=== PATIENT | male | born 1975 | race Caucasian/White ===

== ENCOUNTER 2017-12-29 20:47 | Emergency (ER) | payer BC ==
[2017-12-29 21:00] VITALS: BP 113/80
--- NOTE | 2017-12-29 21:14 | EDM.PDOC ---
ED HPI GENERAL MEDICAL PROBLEM - General Chief Complaint: Abdominal Pain Stated Complaint: FEVER/PAIN IN STOMACH Time Seen by Provider: 12/29/17 21:04 Source of Information: Reports: Patient History Limitations: Reports: No Limitations - History of Present Illness INITIAL COMMENTS - FREE TEXT/NARRATIVE: 42-year-old male presents to the ED with development of fever and some chills this afternoon. He also has pleuritic right-sided chest pain which makes it difficult for take a full deep breath along the right costal margin and right upper quadrant of the abdomen. Was diagnosed that he took 2 Percocets about 1: 00 today. About 4:00 he started to develop fever with some chills. He has a fever upon examination in the ED. He did eat much for supper. Last use of his Port-A-Cath was last in the [facility] where he received IV fluids. He has no genitourinary complaints no diarrhea in fact he has prongs with constipation. Denies cough or sputum production. No sore throat no oral ulcers. Patient finished his second course of chemotherapy last week. He is scheduled for third course of chemotherapy next week. His current oncologist is Dr. Kenyon At [facility] in [place]. Vital signs are normal. He states his O2 sats are usually 95% which they are today. Onset: Today Onset Date: 12/29/17 Onset Time: 15:30 Duration: Hour(s): Location: Reports: Chest (Lower right lung finley pleuritic type pain with deep inspiration.), Abdomen (RUQ of the abdoemn. ) Quality: Reports: Ache, Sharp (Pleuritic) Severity: Moderate (Current rates pain as a 45 out of 10.) Improves with: Reports: Rest Worsens with: Reports: Other Context: Denies: Activity (Deep breathing.), Exercise, Lifting, Sick Contact, Trauma, Other Associated Symptoms: Reports: Shortness of Breath, Other (Chronically his left lung is known to have multiple metastatic nodules.). Denies: No Other Symptoms , Confusion, Chest Pain, Cough, cough w sputum, Diaphoresis, Fever/Chills, Headaches, Loss of Appetite Treatments FIBERGLASSER: Reports: Other (see below) (He is taken Percocet earlier today probably about 1:00 with some relief of the pain and fever relief.) Right Upper Abdominal Pain Score (Numeric/FACES): 9 - Related Data Allergies Allergy/AdvReac Type Severity Reaction Status Date / Time ciprofloxacin HCl Allergy Facial Verified 12/29/17 20:54 [From Cipro] Swelling levofloxacin [From Levaquin] Allergy Rash Verified 12/29/17 20:54 Home Meds: Home Meds Amoxicillin/Clavulanate K [Augmentin 875 MG] 1 tab PO BID #20 tablet 02/13/15 [ Rx] Cefdinir [Omnicef] 300 mg PO BID #14 cap 12/29/17 [Rx] Past Medical History Other Genitourinary History: prostitis Oncologic (Cancer) History: Reports: Other (See Below) (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 Diagnosis was made the end of September of this year confirmed by PET scan to be fairly static. Charlie is currently completed 2 courses of chemotherapy and is scheduled to start third course next week. This includes high-dose steroids orally for week. He has had previous development of pericardial effusion that required drainage but no cancer cells were identified. Known to have metastatic disease I believe to both lungs.) - Past Surgical History Other Male Surgeries/Procedures: Vasectomy 5 weeks ago Social & Family History - Tobacco Use Smoking Status *Q: Unknown Ever Smoked Second Hand Smoke Exposure: No - Alcohol Use Days Per Week of Alcohol Use: 2 Number of Drinks Per Day: 2 Total Drinks Per Week: 4 - Recreational Drug Use Recreational Drug Use: No - Living Situation & Occupation Living situation: Reports: Occupation: Disabled ED ROS GENERAL - Review of Systems Review Of Systems: See Below (At present due to cancer.) Constitutional: Reports: Fever, Chills, Malaise, Weakness (Wray this afternoon), Fatigue, Night Sweats (Kidney much today. Will gets occasional night sweats), Decreased Appetite, Weight Loss HEENT: Reports: No Symptoms Respiratory: Reports: Shortness of Breath, Pleuritic Chest Pain (Chest pain right costal margin). Denies: Wheezing (On exertion), Cough ( today.), Sputum, Hemoptysis, Other Cardiovascular: Reports: No Symptoms, Chest Pain (Right lower quadrant of the chest. Pleuritic and worsens with deep inspiration), Dyspnea on Exertion (Can take a full deep breath as it aggravates the pain). Denies: Blood Pressure Problem, Claudication, Edema, Orthopnea, Other Endocrine: Reports: Fatigue GI/Abdominal: Reports: Abdominal Pain (Right upper quadrant discomfort associated with the pleuritic pain in the right lower lung field.), Constipation (Issues with constipation.) : Reports: No Symptoms, Frequency Musculoskeletal: Reports: Back Pain Skin: Reports: No Symptoms (At the bottom of his right lung on again at costal margin has some pain) Neurological: Reports: No Symptoms Psychiatric: Reports: No Symptoms Hematologic/Lymphatic: Reports: No Symptoms Immunologic: Reports: No Symptoms ED EXAM, GI/ABD - Physical Exam Exam: See Below Exam Limited By: No Limitations General Appearance: Alert, WD/WN, No Apparent Distress, Other (His abdomen does feel quite warm to palpation.) Eyes: Bilateral: Normal Appearance (No jaundice.), Pale Conjunctiva (Mild conjunctival pallor.) Ears: Normal TMs Nose: Normal Inspection, Normal Mucosa, No Blood Throat/Mouth: Normal Inspection, Normal Lips, Normal Teeth, Normal Oropharynx, Other Head: Atraumatic, Normocephalic Neck: Normal Inspection, Supple, Non-Tender, Full Range of Motion. No: Lymphadenopathy (L), Lymphadenopathy (R) Respiratory/Chest: Respiratory Distress, Decreased Breath Sounds (Decreased breath sounds to the lower 50% of the left lung. There is dullness to percussion as well.), Other (Port-A-Cath his right upper anterior chest. Surgical scar left upper anterior chest healing well). No: Normal Breath Sounds (Mild tachypnea), Rales, Rhonchi, Wheezing, Pleural Rub Cardiovascular: Normal Peripheral Pulses, Regular Rate, Rhythm, No Edema, No Gallop (Sinus tachycardia at 1 13/m at rest.), No JVD, No Murmur, No Rub, Tachycardia, Other (Sounds are mildly muffled.) GI/Abdominal Exam: Normal Bowel Sounds, Soft, Non-Tender, No Organomegaly, No Distention, No Abnormal Bruit, No Mass, Pelvis Stable Back Exam: Normal Inspection, Full Range of Motion. No: CVA Tenderness (L), CVA Tenderness (R) Extremities: Normal Inspection, Normal Range of Motion, No Pedal Edema, Normal Capillary Refill, Other Neurological: Alert, Oriented, CN II-XII Intact, Normal Cognition Psychiatric: Normal Affect, Normal Mood Skin Exam: Warm, Dry, Intact, Normal Color, No Rash EKG INTERPRETATION EKG Date: 12/29/17 Time: 21:25 Rhythm: Other Rate (Beats/Min): 113 [place]: LAD-Left [place]un[place] Deviation (Left axis deviation -16) P-Wave: Present QRS: Other (Early R-wave transition consider right ventricular hypertrophy. Decreased voltage limb leads.) ST-T: Depressed (Mild ST segment depression in V6 only.) QT: Prolonged (QT minimally prolonged) EKG Interpretation Comments: Abnormal ECG Course - Vital Signs Last Recorded V/S: Last Vital Signs Temp 36.9 C 12/29/17 20:55 Pulse 129 H 12/29/17 20:55 Resp BP 113/80 12/29/17 20:55 Pulse Ox 95 12/29/17 20:55 - Orders/Labs/Meds Orders: Active Orders 24 hr Category Date Time Status EKG Documentation Completion [RC] STAT Care 12/29/17 21:18 Active Abdomen 1V Flat [CR] Stat Exams 12/29/17 21:18 Taken Chest 1V Frontal [CR] Stat Exams 12/29/17 21:18 Taken CULTURE BLOOD [BC] Stat Lab 12/29/17 21:35 Received CULTURE BLOOD [BC] Stat Lab 12/29/17 21:46 Received Dextrose 5%-0.9% NaCl [Dextrose 5%-Normal Saline] 1,000 Med 12/29/17 21:45 Active ml IV ASDIRECTED Ketorolac [Toradol] Med 12/29/17 21:45 Active 30 mg IVPUSH ONETIME cefTRIAXone [Rocephin] 2 gm Med 12/29/17 23:00 Active Sodium Chloride 0.9% [Normal Saline] 100 ml IV Q24H Blood Culture x2 Reflex Set [OM.PC] Stat Oth 12/29/17 21:20 Ordered Medication Orders Dextrose/Sodium Chloride (Dextrose 5%-Normal Saline) 1,000 mls @ 150 mls/hr IV ASDIRECTED DANIEL Last Admin: 12/29/17 22:11 Dose: 150 mls/hr Ceftriaxone Sodium 2 gm/ (Sodium Chloride) 100 mls @ 100 mls/hr IV Q24H DANIEL Last Admin: 12/29/17 23:06 Dose: 100 mls/hr Ketorolac Tromethamine (Toradol) 30 mg IVPUSH ONETIME [facility] Last Admin: 12/29/17 22:14 Dose: 30 mg Labs: Laboratory Tests 12/29/17 12/29/17 12/29/17 Range/Units 21:46 21:46 21:46 WBC 4.98 (4.23-9.07) K/mm3 RBC 4.03 L (4.63-6.08) M/mm3 Hgb 10.6 L (13.7-17.5) gm/L Hct 32.5 L (40.1-51.0) % MCV 80.6 (79.0-92.2) fl MCH 26.3 (25.7-32.2) pg MCHC 32.6 (32.2-35.5) g/dl RDW Std Deviation 53.1 H (35.1-43.9) fL Plt Count 322 (163-337) K/mm3 MPV 8.4 L (9.4-12.3) fl Neutrophils % (Manual) 63 H (40-60) % Band Neutrophils % 0 (0-10) % Lymphocytes % (Manual) 25 (20-40) % Atypical Lymphs % 0 % Monocytes % (Manual) 11 H (2-10) % Eosinophils % (Manual) 0 L (0.8-7.0) % Basophils % (Manual) 1 (0.2-1.2) Platelet Estimate Adequate Plt Morphology Comment Normal Hypochromasia 1+ slight Anisocytosis 2+ moderate Microcytosis 1+ slight RBC Morph Comment Not Reportable ESR (0-15) mm/hr PT 9.9 (8.0-13.0) SECONDS INR 0.93 D-Dimer, Quantitative (0.19-0.59) mg/L Sodium 137 (136-145) mEq/L Potassium 4.0 (3.5-5.1) mEq/L Chloride 100 (98-107) mEq/L Carbon Dioxide 27 (21-32) mEq/L Anion Gap 14.0 (5-15) BUN 9 (7-18) mg/dL Creatinine 0.9 (0.7-1.3) mg/dL Est Cr Clr Drug Dosing 97.47 mL/min Estimated GFR (MDRD) > 60 (>60) mL/min BUN/Creatinine Ratio 10.0 L (14-18) Glucose 112 H (74-106) mg/dL Lactic Acid (0.4-2.0) mmol/L Calcium 9.1 (8.5-10.1) mg/dL Magnesium 1.8 (1.8-2.4) mg/dl Total Bilirubin 0.5 (0.2-1.0) mg/dL AST 16 (15-37) U/L ALT 26 (16-63) U/L Alkaline Phosphatase 80 (46-116) U/L Lactate Dehydrogenase 250 H (85-227) U/L Creatine Kinase 26 L (39-308) U/L C-Reactive Protein 11.9 H* (<1.0) mg/dL NT-Pro-B Natriuret Pep (0-125) pg/mL Total Protein 7.1 (6.4-8.2) g/dl Albumin 3.4 (3.4-5.0) g/dl Globulin 3.7 gm/dL Albumin/Globulin Ratio 0.9 L (1-2) Urine Color (Yellow) Urine Appearance (Clear) Urine pH (5.0-8.0) Ur Specific Mulberry (1.005-1.030) Urine Protein (Negative) Urine Glucose (UA) (Negative) Urine Ketones (Negative) Urine Occult Blood (Negative) Urine Nitrite (Negative) Urine Bilirubin (Negative) Urine Urobilinogen (0.2-1.0) Ur Leukocyte Esterase (Negative) Urine RBC (0-5) /hpf Urine WBC (0-5) /hpf Ur Epithelial Cells (0-5) /hpf Ur Squamous Epith Cells (0-5) /hpf Urine Bacteria (FEW) /hpf Urine Mucus (FEW) /hpf 12/29/17 12/29/17 12/29/17 Range/Units 21:46 21:46 21:46 WBC (4.23-9.07) K/mm3 RBC (4.63-6.08) M/mm3 Hgb (13.7-17.5) gm/L Hct (40.1-51.0) % MCV (79.0-92.2) fl MCH (25.7-32.2) pg MCHC (32.2-35.5) g/dl RDW Std Deviation (35.1-43.9) fL Plt Count (163-337) K/mm3 MPV (9.4-12.3) fl Neutrophils % (Manual) (40-60) % Band Neutrophils % (0-10) % Lymphocytes % (Manual) (20-40) % Atypical Lymphs % % Monocytes % (Manual) (2-10) % Eosinophils % (Manual) (0.8-7.0) % Basophils % (Manual) (0.2-1.2) Platelet Estimate Plt Morphology Comment Hypochromasia Anisocytosis Microcytosis RBC Morph Comment ESR 78 H (0-15) mm/hr PT (8.0-13.0) SECONDS INR D-Dimer, Quantitative 1.80 H (0.19-0.59) mg/L Sodium (136-145) mEq/L Potassium (3.5-5.1) mEq/L Chloride (98-107) mEq/L Carbon Dioxide (21-32) mEq/L Anion Gap (5-15) BUN (7-18) mg/dL Creatinine (0.7-1.3) mg/dL Est Cr Clr Drug Dosing mL/min Estimated GFR (MDRD) (>60) mL/min BUN/Creatinine Ratio (14-18) Glucose (74-106) mg/dL Lactic Acid 0.7 (0.4-2.0) mmol/L Calcium (8.5-10.1) mg/dL Magnesium (1.8-2.4) mg/dl Total Bilirubin (0.2-1.0) mg/dL AST (15-37) U/L ALT (16-63) U/L Alkaline Phosphatase (46-116) U/L Lactate Dehydrogenase (85-227) U/L Creatine Kinase (39-308) U/L C-Reactive Protein (<1.0) mg/dL NT-Pro-B Natriuret Pep (0-125) pg/mL Total Protein (6.4-8.2) g/dl Albumin (3.4-5.0) g/dl Globulin gm/dL Albumin/Globulin Ratio (1-2) Urine Color (Yellow) Urine Appearance (Clear) Urine pH (5.0-8.0) Ur Specific Mulberry (1.005-1.030) Urine Protein (Negative) Urine Glucose (UA) (Negative) Urine Ketones (Negative) Urine Occult Blood (Negative) Urine Nitrite (Negative) Urine Bilirubin (Negative) Urine Urobilinogen (0.2-1.0) Ur Leukocyte Esterase (Negative) Urine RBC (0-5) /hpf Urine WBC (0-5) /hpf Ur Epithelial Cells (0-5) /hpf Ur Squamous Epith Cells (0-5) /hpf Urine Bacteria (FEW) /hpf Urine Mucus (FEW) /hpf 12/29/17 12/29/17 Range/Units 21:46 22:19 WBC (4.23-9.07) K/mm3 RBC (4.63-6.08) M/mm3 Hgb (13.7-17.5) gm/L Hct (40.1-51.0) % MCV (79.0-92.2) fl MCH (25.7-32.2) pg MCHC (32.2-35.5) g/dl RDW Std Deviation (35.1-43.9) fL Plt Count (163-337) K/mm3 MPV (9.4-12.3) fl Neutrophils % (Manual) (40-60) % Band Neutrophils % (0-10) % Lymphocytes % (Manual) (20-40) % Atypical Lymphs % % Monocytes % (Manual) (2-10) % Eosinophils % (Manual) (0.8-7.0) % Basophils % (Manual) (0.2-1.2) Platelet Estimate Plt Morphology Comment Hypochromasia Anisocytosis Microcytosis RBC Morph Comment ESR (0-15) mm/hr PT (8.0-13.0) SECONDS INR D-Dimer, Quantitative (0.19-0.59) mg/L Sodium (136-145) mEq/L Potassium (3.5-5.1) mEq/L Chloride (98-107) mEq/L Carbon Dioxide (21-32) mEq/L Anion Gap (5-15) BUN (7-18) mg/dL Creatinine (0.7-1.3) mg/dL Est Cr Clr Drug Dosing mL/min Estimated GFR (MDRD) (>60) mL/min BUN/Creatinine Ratio (14-18) Glucose (74-106) mg/dL Lactic Acid (0.4-2.0) mmol/L Calcium (8.5-10.1) mg/dL Magnesium (1.8-2.4) mg/dl Total Bilirubin (0.2-1.0) mg/dL AST (15-37) U/L ALT (16-63) U/L Alkaline Phosphatase (46-116) U/L Lactate Dehydrogenase (85-227) U/L Creatine Kinase (39-308) U/L C-Reactive Protein (<1.0) mg/dL NT-Pro-B Natriuret Pep 26 (0-125) pg/mL Total Protein (6.4-8.2) g/dl Albumin (3.4-5.0) g/dl Globulin gm/dL Albumin/Globulin Ratio (1-2) Urine Color Yellow (Yellow) Urine Appearance Clear (Clear) Urine pH 6.5 (5.0-8.0) Ur Specific [place] 1.015 (1.005-1.030) Urine Protein Negative (Negative) Urine Glucose (UA) Negative (Negative) Urine Ketones Negative (Negative) Urine Occult Blood Negative (Negative) Urine Nitrite Negative (Negative) Urine Bilirubin Negative (Negative) Urine Urobilinogen 0.2 (0.2-1.0) Ur Leukocyte Esterase Negative (Negative) Urine RBC Not seen (0-5) /hpf Urine WBC 0-5 (0-5) /hpf Ur Epithelial Cells 0-5 (0-5) /hpf Ur Squamous Epith Cells 0-5 (0-5) /hpf Urine Bacteria Not seen (FEW) /hpf Urine Mucus Not seen (FEW) /hpf Meds: Medications Generic Name Dose Route Start Last Admin Trade Name Freq PRN Reason Stop Dose Admin Dextrose/Sodium Chloride 1,000 mls @ 150 mls/hr 12/29/17 21:45 12/29/17 22:11 Dextrose 5%-Normal Saline IV 150 mls/hr ASDIRECTED DANIEL Administration Ceftriaxone Sodium 2 gm/ 100 mls @ 100 mls/hr 12/29/17 23:00 12/29/17 23:06 Sodium Chloride IV 100 mls/hr Q24H DANIEL Administration Ketorolac Tromethamine 30 mg 12/29/17 21:45 12/29/17 22:14 Toradol IVPUSH 30 mg ONETIME DANIEL Administration Discontinued Medications Generic Name Dose Route Start Last Admin Trade Name Freq PRN Reason Stop Dose Admin Acetaminophen 975 mg 12/29/17 21:33 12/29/17 22:15 Tylenol PO 12/29/17 21:34 975 mg NOW ONE Administration Heparin Sodium (Porcine) 500 units 12/29/17 23:45 Heparin Lock Flush 100 Units/Ml FLUSH 12/29/17 23:46 ASDIRECTED ONE Magnesium Citrate 180 ml 12/29/17 23:37 Citrate Of Magnesia PO 12/29/17 23:38 ONETIME ONE - Radiology Interpretation Free Text/Narrative:: 42-year-old male presents to the ED for evaluation of acute onset of fever and chills this afternoon. He had some mild pleuritic chest pain last night along the right costal margin that is worsened as the day has gone on. No associated cough or sputum production. He feels pain in his right upper quadrant of his abdomen is well. States she's had some issues with constipation as of late. Appetite was poor and he did not eat much for supper tonight. He is febrile on my initial assessment. 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 He is just completed his second course of chemotherapy last week. He is due to start third course next week. He has taken 2 Percocets earlier this afternoon for fever and pain relief. Her pain is 4 out of 10 with a strong pleuritic component. Plan septic workup. Will access his Port-A-Cath for one blood culture and a peripheral blood culture will be obtained. One view chest x- ray one view abdomen to be done. He has really decreased air into the left lung field with suspect pleural effusion on the left side. May require CT scan of his chest. Pain he just had one last however at [facility]. Question is whether he's developing pneumonia in the bottom of his right lung. No adventitial sounds are noted right lung base. Will be given Tylenol 975 mg orally for fever relief Toradol 30 g IV for pleuritic pain relief. - Re-Assessments/Exams Free Text/Narrative Re-Assessment/Exam: 12/29/17 22:[address] scan of his chest and abdomen that was performed on last week as the report is on the patient's phone. Indicates that the tumor in the left side of the chest seems to be responding well to chemotherapy. Multiple bilateral nodules particularly in the left lung field of shrunken dramatically. These were mostly lymph nodes. CT of the abdomen did not show any metastatic disease to his liver kidneys adrenal glands or pancreas. Chest x-ray done here reveals a completely normal-appearing right lung field with no pleural effusion or infiltrates. The left lung shows tenting at the left lingula due to enlargement of lymph nodes in the mediastinum and hilum on the left side. However there is no pleural effusion and there is does not appear to be any obvious cardiac enlargement. Abdominal films reveal increased stool in the right upper quadrant i.e. hepatic flexure of the colon which may be causing some of his right upper quadrant abdominal pain. Awaiting his labs. 12/29/17 22:40 White count is normal at 4.98. Differential is 63% neutrophils no bands. Hemoglobin is 10.6 with hematocrit of 32.5. Platelet count is 322. There is 1+ hypochromasia and 2+ anisocytosis and 1+ microcytosis on the micro- . PT is 9.9 with an INR of 0.93. D-dimer is mildly elevated at 1.80. I feel this is likely elevated secondary to his underlying malignancy. Sodium is 137 with potassium of 4.0. Chloride is 100 with a bicarbonate of 27. Anion gap is 14.0 with a BUN of 9. Creatinine is 0.9. Glucose is 112. Lactic acid 0.7. Calcium 9.1 magnesium 1.8. Liver function normal. Lactate dehydrogenase is elevated at 250--normal MR labs up to 227. Creatine kinase is 26 C-reactive protein is 11.9. 12/29/17 22:[address] Padilla--leather sponger oncologist at [facility]. Case discussed with her and she agrees with starting him on oral antibiotics. She suggested Levaquin and I concur. However the patient on further assessment had a severe reaction to Levaquin and is allergic to Cipro as well. Therefore will use Rocephin 2 g intravenously now. I will then start him on Omnicef 300 mg twice a day for further 7 days will see what the blood culture showed tomorrow. Of note he is now pretty well pain free after the Toradol was given. I will send him home with the dose of Citroma 5 ounces to take tomorrow morning to provide bowel cleanse and remove the stool from his right upper quadrant present and see if this relieves his pain. 12/29/17 23:37 urinalysis returned completely normal as well. He is nearly finished his Rocephin intravenously and will therefore be discharged home. Plan will be to place him on Omnicef 300 mg twice a day for 7 more days for coverage of potential infective process as he is considered immunocompromised he is to return to medical care if he develops increased fever chills or increased pleuritic right-sided chest pain. Departure - Departure Time of Disposition: 23:38 Disposition: Home, Self-Care 01 Condition: Fair Clinical Impression: Pleurisy, Right upper quadrant abdominal pain, Constipation by delayed colonic transit, Carcinoma of thymus, Febrile illness, acute, Immunocompromised patient - Discharge Information Prescriptions: Cefdinir [Omnicef] 300 mg PO BID #14 cap Referrals: Ismael Zavala MD [Physician] - Forms: ED Department Discharge Additional Instructions: Evaluation in the emergency room today in regards to development of acute onset of fever and chills later this afternoon. Associated pleuritic right-sided lower chest pain and right upper quadrant abdominal discomfort. You are considered immunocompromise due to receiving chemotherapy for primary thymus gland carcinoma. Recent CTs of the chest reveal that the tumor seems to be regressing quite well in response to chemotherapy. Low-grade fever appreciated while in the ED. You are treated with Tylenol for fever relief and Toradol 30 mg was given intravenously for pleuritic pain relief. Chest x-ray done shows a completely clear right lung field the left side of course shows residual nodularity as well as tenting of the left hilar area where the blood vessels coming into the heart and into the lungs due to thymus tumor. CT of her abdomen done last week revealed no evidence of any spread of the cancer below the diaphragm. X-ray of the abdomen today shows increased stool in the right upper quadrant of the abdomen which may or may not be causing your upper abdominal discomfort and pain. Lab work revealed a normal white count at 4.86 and essentially a normal differential of the white count is well. Fever can sometimes be due to tumor cell however it is felt prudent to cover with antibiotics does appear immunocompromise state. Risk of infection is too great. Therefore you're given the initial dose of antibiotics intravenously while in the ED 2 g of Rocephin since you are allergic to the quinolones. Treatment as an outpatient will be Omnicef 300 mg twice daily for the next week. He to return to medical care if you develop high fever severe chills nausea vomiting or increasing pain in your right lung field. I would anticipate return to normal status without pain or fever within 48-72 hours. If not you certainly should be seen in again or travel to [place] to see oncology. It is okay to use Motrin 600 mg every 6 hours for fever and/or pain relief as needed. - My Orders Last 24 Hours: My Active Orders 12/29/17 21:18 EKG Documentation Completion [RC] STAT Abdomen 1V Flat [CR] Stat Chest 1V Frontal [CR] Stat 12/29/17 21:20 Blood Culture x2 Reflex Set [OM.PC] Stat 12/29/17 21:35 CULTURE BLOOD [BC] Stat 12/29/17 21:45 Dextrose 5%-0.9% NaCl [Dextrose 5%-Normal Saline] 1,000 ml IV ASDIRECTED Ketorolac [Toradol] 30 mg IVPUSH ONETIME 12/29/17 21:46 CULTURE BLOOD [BC] Stat 12/29/17 23:00 cefTRIAXone [Rocephin] 2 gm Sodium Chloride 0.9% [Normal Saline] 100 ml IV Q24H - Assessment/Plan Last 24 Hours: My Active Orders 12/29/17 21:18 EKG Documentation Completion [RC] STAT Abdomen 1V Flat [CR] Stat Chest 1V Frontal [CR] Stat 12/29/17 21:20 Blood Culture x2 Reflex Set [OM.PC] Stat 12/29/17 21:35 CULTURE BLOOD [BC] Stat 12/29/17 21:45 Dextrose 5%-0.9% NaCl [Dextrose 5%-Normal Saline] 1,000 ml IV ASDIRECTED Ketorolac [Toradol] 30 mg IVPUSH ONETIME 12/29/17 21:46 CULTURE BLOOD [BC] Stat 12/29/17 23:00 cefTRIAXone [Rocephin] 2 gm Sodium Chloride 0.9% [Normal Saline] 100 ml IV Q24H
[2017-12-29] MEDS ORDERED: Acetaminophen 325 MG Tab PO ONE (21:33)
[2017-12-29] MEDS ORDERED: Ketorolac 30 MG/ML SDV IVPUSH SCH (21:45)
[2017-12-29] MEDS ORDERED: Dextrose 5%-0.9% NaCl 1,000 ML IV SCH (21:45)
[2017-12-29] MEDS ORDERED: cefTRIAXone 2 GM in Sodium Chloride 0.9% 100 ML IV SCH (23:00)
[2017-12-29] MEDS ORDERED: Magnesium Citrate Solution 296 ML Bottle PO ONE (23:37)
--- NOTE | 2017-12-30 06:33 | CR ---
Abdomen: Supine view of the abdomen was obtained. Comparison: Prior abdominal x-ray is not available, previous CT exam of 09/13/15 is available Bowel gas pattern appears within normal limits. Contrast is present within the appendix which is incidental. No abnormal calcifications or discrete soft tissue abnormality is seen. Impression: 1. Nothing acute is seen on supine abdominal x-ray. Diagnostic code #2
--- NOTE | 2017-12-30 06:33 | CR ---
Chest: Supine view of the chest was obtained. Comparison: Prior chest CT of 02/10/15, chest x-ray of 02/10/15 Mass is identified within the left AP window. Adenopathy is seen on chest CT which appears more prominent than on prior chest x-ray. Widening of the right paratracheal soft tissues is also noted. Left hemidiaphragm is poorly seen which is compatible with atelectasis. Lungs otherwise are clear. Right sided infusion port is seen. Impression: 1. Mediastinal adenopathy which is more prominent than seen on prior chest x-ray. 2. Probable left basilar atelectasis. 3. Nothing acute is otherwise seen. Diagnostic code #9
== END 2017-12-30 00:04 | disposition home or self-care (01) ==
LOC: JD.ED 20:47
DX: R09.1 Pleurisy (principal); K59.01 Slow transit constipation; C37 Malignant neoplasm of thymus; Z88.1 Allergy status to other antibiotic agents; Z79.899 Other long term (current) drug therapy
CPT/HCPCS: 36415; 71045; 74018; 80053; 81001; 82550; 83605; 83615; 83735; 83880; 85025; 85379; 85610; 85652; 86140; 87040; 93005; 96361; 96365; 96375; 99284; A9270; J0696; J1642; J1885; J7030; J7042; 93010

== ENCOUNTER 2018-01-20 16:11 | Emergency (ER) | payer BC ==
[2018-01-20 16:28] VITALS: BP 112/79
--- NOTE | 2018-01-20 16:41 | EDM.PDOC ---
ED HPI GENERAL MEDICAL PROBLEM - General Chief Complaint: Chest Pain Stated Complaint: CHEST PAINS/FEVER Time Seen by Provider: 01/20/18 16:30 Source of Information: Reports: Patient History Limitations: Reports: No Limitations - History of Present Illness INITIAL COMMENTS - FREE TEXT/NARRATIVE: 42-year-old male presents to the ED at the request of the infusion center and [facility]. Patient has been going there daily for IV fluid replacement receiving chemotherapy 20 days ago. 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 He developed some chills and some riders while in the clinic today. Spiked a fever of 101.2. He has not taken anything for fever so far today. He states he has diffuse chest pains which are primarily sharp and stabbing and made worse with palpation of his chest wall particularly left precordium. On the left side the pain does go through to his left intra- scapular area. He has an intermittent cough but no sputum production and no hemoptysis. Appetite has been fair. He usually develops quite severe diarrhea with his chemotherapy but it wasn't as bad this last go around which is course # 3. He was on a course of Ceftin ear for 7 days starting December 30. He did receive a dose of Rocephin 2 g intravenously while he was in the ED on December 29. She will recover from that infective process quite well. Onset: Today (Development of chills and with rigors while at the infusion center this afternoon. Didn't feel all that well yesterday but didn't have a recognized temperature. Did take Tylenol last night for comfort.) Onset Date: 01/20/18 Onset Time: 15:00 Duration: Hour(s): Location: Reports: Generalized (Velban of fever and chills while receiving fluids at the infusion center today at [facility].) Quality: Reports: Other (Diffuse chest pain some of his chest wall as he can make it stevie on palpation particularly left precordium. It does radiate into his left upper extremity and medial arm and through to his back in the infrascapular area.states he has a mild cough but not bringing up any phlegm. It hurts to cough. There is a slight component of pleurisy here with deep inspiration causing some sharp stabbing pain. ) Improves with: Reports: None Worsens with: Reports: None Context: Reports: Other (Spontaneous occurrence. He is immunocompromised.). Denies: Activity, Exercise, Lifting, Sick Contact, Trauma Associated Symptoms: Reports: Chest Pain, Cough, Fever/Chills, Loss of Appetite , Malaise, Shortness of Breath, Weakness (Generalized). Denies: Confusion, cough w sputum, Diaphoresis, Headaches, Nausea/Vomiting, Rash (Minimal exertion. ), Seizure, Syncope Treatments CREDIT VERIFIER: Reports: Acetaminophen (Last dose was last evening.) Chest Pain Score (Numeric/FACES): 7 - Related Data Allergies Allergy/AdvReac Type Severity Reaction Status Date / Time ciprofloxacin HCl Allergy Facial Verified 01/20/18 16:21 [From Cipro] Swelling levofloxacin [From Levaquin] Allergy Rash Verified 01/20/18 16:21 Home Meds: Home Meds Cefdinir [Omnicef] 300 mg PO BID #20 cap 01/20/18 [Rx] Ondansetron HCl [Zofran] 8 mg PO Q8H PRN 01/20/18 [History] Prochlorperazine Maleate [Compazine] 10 mg PO QID PRN 01/20/18 [History] oxyCODONE ER [OxyCONTIN] 10 mg PO Q8H PRN 01/20/18 [History] oxyCODONE HCl/Acetaminophen [oxyCODONE-Acetaminophen 5-325] 1 - 2 tab PO Q4H PRN 01/20/18 [History] Past Medical History Cardiovascular History: Reports: DC, Other (See Below) Other Cardiovascular History: pericardial window placement, DC secondary to reaction to levaquin Respiratory History: Reports: Other (See Below) Other Respiratory History: thymus squamous cell carcinoma Other Genitourinary History: prostitis Oncologic (Cancer) History: Reports: Other (See Below) (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 Diagnosis was made the end of September of this year confirmed by PET scan to be fairly static. is currently completed 2 courses of chemotherapy and is scheduled to start third course next week. This includes high-dose steroids orally for week. He has had previous development of pericardial effusion that required drainage but no cancer cells were identified. 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 From by PET scan recently to be fairly static. Currently has completed 3 courses of chemotherapy and is scheduled to travel to the [facility] tomorrow for repeat PET scan to decide on further treatment and management. He has had high-dose steroids as part of his treatment plan. Has had previous development of pericardial effusion that required drainage but no cancer cells were identified in the pericardial fluid. No definite metastatic disease I believe to both lungs involving the pleura. - Past Surgical History Other Male Surgeries/Procedures: Vasectomy 5 weeks ago Social & Family History - Family History Cardiac: Reports: Other (See Below) Other Cardiac Family History: WPW syndrome - Tobacco Use Smoking Status *Q: Unknown Ever Smoked Second Hand Smoke Exposure: No - Caffeine Use Caffeine Use: Reports: Coffee - Alcohol Use Days Per Week of Alcohol Use: 2 Number of Drinks Per Day: 2 Total Drinks Per Week: 4 - Recreational Drug Use Recreational Drug Use: No - Living Situation & Occupation Living situation: Reports: Occupation: Disabled ED ROS GENERAL - Review of Systems Review Of Systems: See Below Constitutional: Reports: Fever, Chills, Malaise, Weakness (First noted this afternoon but possibly a low-grade fever last night.), Fatigue, Decreased Appetite. Denies: Weight Loss HEENT: Reports: No Symptoms Respiratory: Reports: Shortness of Breath, Pleuritic Chest Pain, Cough. Denies : Wheezing, Sputum (But rarely brings up any phlegm.), Hemoptysis Cardiovascular: Reports: Chest Pain (Especially throughout the left precordium. He does have pains on both sides of his chest at times.), Dyspnea on Exertion, Lightheadedness. Denies: Blood Pressure Problem ( Is 10 to be mostly sharp and stabbing pains.), Claudication, Edema, Orthopnea, Palpitations Endocrine: Reports: Fatigue GI/Abdominal: Reports: Decreased Appetite, Nausea (Occasionally.). Denies: Abdominal Pain, Anorexia, Black Stool, Bloody Stool, Constipation, Difficulty Swallowing, Distension, Flatus, Hematemesis, Hematochezia, Melena, Stool Incontinence, Vomiting, Other : Reports: No Symptoms Musculoskeletal: Reports: Back Pain Skin: Reports: No Symptoms Neurological: Reports: No Symptoms Psychiatric: Reports: No Symptoms Hematologic/Lymphatic: Reports: No Symptoms Immunologic: Reports: No Symptoms ED EXAM, GENERAL - Physical Exam Exam: See Below Exam Limited By: No Limitations General Appearance: Alert, WD/WN, Anxious, Mild Distress, Other (Has lost all of his hair. He does feel moderately warm to palpation.) Eye Exam: Bilateral Eye: Normal Inspection Ears: Normal TMs Throat/Mouth: Normal Inspection, Normal Lips, Normal Teeth, Normal Oropharynx Head: Atraumatic, Normocephalic Neck: Normal Inspection, Supple, Non-Tender, Full Range of Motion. No: Carotid Bruit, Lymphadenopathy (L), Lymphadenopathy (R) Respiratory/Chest: Decreased Breath Sounds (Decreased breath sounds particularly to the left lung field. He has dullness to percussion of the posterior 50% of the left lung field and perhaps 20% of the right lung field.), Rales, Rhonchi (CAD or rhonchi upper anterior lobes bilaterally.), Other (Does have significant chest wall tenderness on palpation of the ribs particularly 34 and 5 midclavicular line the radiate towards the axilla. No palpable abnormalities or appreciable patient of the chest wall. Port-A-Cath is on the right upper anterior chest.). No: Lungs Clear, Normal Breath Sounds, Respiratory Distress, Wheezing Cardiovascular: Normal Peripheral Pulses, No Gallop, No Murmur (Resting tachycardia of 1 31/m.), No Rub, Tachycardia Peripheral Pulses: 3+: Posterior Tibial (L), Posterior Tibial (R), Dorsalis Pedis (L), Dorsalis Pedis (R) GI/Abdominal: Normal Bowel Sounds, Soft, Non-Tender, No Organomegaly, No Distention, No Abnormal Bruit, Pelvis Stable, Other (Slight tenderness in the distribution of his liver. No organomegaly hour.) Extremities: Normal Inspection, Normal Range of Motion, Non-Tender, No Pedal Edema Neurological: Alert, Oriented, CN II-XII Intact, Normal Cognition Psychiatric: Normal Affect, Normal Mood Skin Exam: Warm, Dry, Intact, Normal Color, No Rash EKG INTERPRETATION EKG Date: 01/20/18 Time: 16:17 Rhythm: Other (Sinus tachycardia) Rate (Beats/Min): 131 [place]: LAD-Left [place] Deviation (Mild left axis deviation of -15.) P-Wave: Present QRS: Other (Early R-wave transition. Consider right ventricular hypertrophy septal hypertrophy pattern. Decreased voltage stroke the limb leads. Near Q waves leads 3 and aVF it's her old inferior wall myocardial infarction.) ST-T: Other (T-wave flattening in aVF in T-wave inversion in lead 3.) QT: Normal EKG Interpretation Comments: Borderline ECG Course - Vital Signs Last Recorded V/S: Last Vital Signs Temp 36.8 C 01/20/18 16:21 Pulse 131 H 01/20/18 16:21 Resp 16 01/20/18 16:21 BP 112/79 01/20/18 16:21 Pulse Ox 98 01/20/18 17:14 - Orders/Labs/Meds Orders: Active Orders 24 hr Category Date Time Status EKG Documentation Completion [RC] STAT Care 01/20/18 16:30 Active Chest 1V Frontal [CR] Stat Exams 01/20/18 16:30 Taken Chest PE [Ang Chest] [CT] Stat Exams 01/20/18 17:24 Taken CULTURE BLOOD [BC] Stat Lab 01/20/18 16:30 Received CULTURE BLOOD [BC] Stat Lab 01/20/18 16:45 Received Sodium Chloride 0.9% [Saline Flush] Med 01/20/18 17:53 Active 10 ml FLUSH ONETIME PRN Blood Culture x2 Reflex Set [OM.PC] Stat Oth 01/20/18 16:30 Ordered Medication Orders Sodium Chloride (Saline Flush) 10 ml FLUSH ONETIME PRN PRN Reason: IV FLUSH Last Admin: 01/20/18 18:12 Dose: 10 ml Labs: Laboratory Tests 01/20/18 01/20/18 01/20/18 Range/Units 16:30 16:30 16:30 WBC 4.17 L (4.23-9.07) K/mm3 RBC 3.68 L (4.63-6.08) M/mm3 Hgb 10.0 L (13.7-17.5) gm/L Hct 30.2 L (40.1-51.0) % MCV 82.1 (79.0-92.2) fl MCH 27.2 (25.7-32.2) pg MCHC 33.1 (32.2-35.5) g/dl RDW Std Deviation 59.8 H (35.1-43.9) fL Plt Count 310 (163-337) K/mm3 MPV 8.7 L (9.4-12.3) fl Neutrophils % (Manual) 57 (40-60) % Band Neutrophils % 0 (0-10) % Lymphocytes % (Manual) 22 (20-40) % Atypical Lymphs % 0 % Monocytes % (Manual) 21 H (2-10) % Eosinophils % (Manual) 0 L (0.8-7.0) % Basophils % (Manual) 0 L (0.2-1.2) Platelet Estimate Adequate Poikilocytosis 1+ slight Anisocytosis 1+ slight Ovalocytes Few RBC Morph Comment Not Reportable PT 10.1 (9.5-12.1) SECONDS INR 0.93 Sodium 133 L (136-145) mEq/L Potassium 4.1 (3.5-5.1) mEq/L Chloride 98 (98-107) mEq/L Carbon Dioxide 29 (21-32) mEq/L Anion Gap 10.1 (5-15) BUN 11 (7-18) mg/dL Creatinine 1.0 (0.7-1.3) mg/dL Est Cr Clr Drug Dosing 87.73 mL/min Estimated GFR (MDRD) > 60 (>60) mL/min BUN/Creatinine Ratio 11.0 L (14-18) Glucose 100 (74-106) mg/dL Lactic Acid (0.4-2.0) mmol/L Calcium 9.0 (8.5-10.1) mg/dL Magnesium 1.4 L (1.8-2.4) mg/dl Total Bilirubin 0.5 (0.2-1.0) mg/dL AST 23 (15-37) U/L ALT 28 (16-63) U/L Alkaline Phosphatase 78 (46-116) U/L CK-MB (CK-2) < 0.5 (0-3.6) ng/ml Troponin I < 0.017 (0.00-0.056) ng/mL C-Reactive Protein 16.8 H* (<1.0) mg/dL NT-Pro-B Natriuret Pep (0-125) pg/mL Total Protein 6.9 (6.4-8.2) g/dl Albumin 3.2 L (3.4-5.0) g/dl Globulin 3.7 gm/dL Albumin/Globulin Ratio 0.9 L (1-2) 01/20/18 01/20/18 Range/Units 16:30 16:30 WBC (4.23-9.07) K/mm3 RBC (4.63-6.08) M/mm3 Hgb (13.7-17.5) gm/L Hct (40.1-51.0) % MCV (79.0-92.2) fl MCH (25.7-32.2) pg MCHC (32.2-35.5) g/dl RDW Std Deviation (35.1-43.9) fL Plt Count (163-337) K/mm3 MPV (9.4-12.3) fl Neutrophils % (Manual) (40-60) % Band Neutrophils % (0-10) % Lymphocytes % (Manual) (20-40) % Atypical Lymphs % % Monocytes % (Manual) (2-10) % Eosinophils % (Manual) (0.8-7.0) % Basophils % (Manual) (0.2-1.2) Platelet Estimate Poikilocytosis Anisocytosis Ovalocytes RBC Morph Comment PT (9.5-12.1) SECONDS INR Sodium (136-145) mEq/L Potassium (3.5-5.1) mEq/L Chloride (98-107) mEq/L Carbon Dioxide (21-32) mEq/L Anion Gap (5-15) BUN (7-18) mg/dL Creatinine (0.7-1.3) mg/dL Est Cr Clr Drug Dosing mL/min Estimated GFR (MDRD) (>60) mL/min BUN/Creatinine Ratio (14-18) Glucose (74-106) mg/dL Lactic Acid 0.9 (0.4-2.0) mmol/L Calcium (8.5-10.1) mg/dL Magnesium (1.8-2.4) mg/dl Total Bilirubin (0.2-1.0) mg/dL AST (15-37) U/L ALT (16-63) U/L Alkaline Phosphatase (46-116) U/L CK-MB (CK-2) (0-3.6) ng/ml Troponin I (0.00-0.056) ng/mL C-Reactive Protein (<1.0) mg/dL NT-Pro-B Natriuret Pep 53 (0-125) pg/mL Total Protein (6.4-8.2) g/dl Albumin (3.4-5.0) g/dl Globulin gm/dL Albumin/Globulin Ratio (1-2) Meds: Medications Generic Name Dose Route Start Last Admin Trade Name Freq PRN Reason Stop Dose Admin Sodium Chloride 10 ml 01/20/18 17:53 01/20/18 18:12 Saline Flush FLUSH 10 ml ONETIME PRN Administration IV FLUSH Discontinued Medications Generic Name Dose Route Start Last Admin Trade Name Freq PRN Reason Stop Dose Admin Ceftriaxone Sodium 2 gm/ 100 mls @ 100 mls/hr 01/20/18 17:23 01/20/18 17:41 Sodium Chloride IV 01/20/18 18:22 100 mls/hr ONETIME ONE Administration Iopamidol 50 ml 01/20/18 17:53 01/20/18 18:12 [id number] (76%) IVPUSH 01/20/18 17:54 50 ml ONETIME ONE Administration Iopamidol 100 ml 01/20/18 17:53 01/20/18 18:12 Isovue-370 (76%) IVPUSH 01/20/18 17:54 50 ml ONETIME ONE Administration - Radiology Interpretation Free Text/Narrative:: 42-year-old male presents to the ED after expressing fever and chill development well having infusion of clear intravenous fluids at the infusion center today. He's been going daily since his last bout of chemotherapy as he usually develops significant inability eat and diarrhea. Didn't feel all that well last night did take Tylenol before bed but no noted fever occurred. Did fever 101.2 today. Initial O2 sats were 91-92% on room air. However he desaturated to upper 80s shortly after being admitted to the ED at rest. Examination reveals decreased air into to the posterior 50% of the left lung field and to the 20% of the right lower lung field suspicious for bilateral pleural effusions are mass. Plan septic workup will be completed with blood cultures 2 urine urinalysis to be done. Lactic acid level. He is a sinus tachycardia at 1 31/m at rest partly due to fever but he states he usually runs around 118/m.in. Dr. Ware his oncologist became involved in the discussion today and Dr. Ware want to make sure that he did not suffer a pulmonary embolism. A D-dimer test would be useful as it will be strongly positive because of his underlying cancer. Plan will be to see what chest x-ray shows and how his creatinine is doing prior to having a CT pulmonary and gram completed. - Re-Assessments/Exams Free Text/Narrative Re-Assessment/Exam: 01/20/18: Total white count is low at 4.17. Differential is pending hemoglobin is low at 10 with a hematocrit of 30.2. Platelet count is 310,000. He is 10.1 with an INR of 0.93. Sodium is slightly low at 133. Potassium is 4.1. Chloride is 98 with a bicarbonate 29. Anion gap is 10.1 with a BUN of 11. Creatinine is 1.0.. Glucose was 100. Lactic acid is 0.9. Calcium is 9.0 magnesium is low at 1.4. Liver function is normal. CK-MB fraction is less than 0.5 troponin I is less than 0.017. C-reactive protein is markedly elevated at 16.8. BNP is normal at 53. Albumin fraction slightly low at 3.2. 01/20/18 17:49 ECG confirmed sinus tachycardia at 1 31/m. There is an early R- wave transition pattern compatible with right ventricular hypertrophy source/ septal hypertrophy pattern. There is near Q waves leads 3 and aVF compatible with an old inferior wall myocardial infraction which the patient has no history of. Decreased voltage throughout the precordial leads. There is a left axis deviation of -15. Straight reveals an elevated left hemidiaphragm and and appears to probably be paralyzed. There is bowel that extends up into normal lung volume in the chest. There is a mass effect in the left lower lobe unclear if this is all from the thymus tumor or if this is fluid or represents consolidation from pneumonia. He lung appeared relatively clear. Creatinine came back at 1.0 I will therefore go ahead with CT pulmonary and gram of the chest. In the meantime patient will be given 2 g of Rocephin intravenously. 01/20/18 18:09 differential is back in the white count. It is 57% neutrophils no bands. 21% monocytes however which is mildly elevated. 01/20/18 18:31 CT pulmonary and gram of the chest is been completed. He does reveal trace pericardial effusion and mild cardiomegaly. I do not see any definitive evidence of pulmonary emboli. The right lung field is essentially normal. The left side shows a combination of thymic tumor invasion from the midline extending laterally to involve the upper half of the lobe of the lung. There is a circumferential density in the left lower lobe and I suspect fluid between the upper and lower fissures. Lower lung field is compressed and I believe fluid-filled suspicious for pneumonia. I will await the radiologist's opinion in this regard. 01/20/18 18:58 V Rad agrees with no signs of acute pulmonary embolism. There is a left basilic consolidation or atelectasis I will prefer the word consolidation suspicious for pneumonia. There is a small to moderate left-sided pleural effusion with no pneumothorax. There is nodular thickening along the upper margin of left major fissure. A new finding. There is progression in size of confluence of the left superior mediastinal mass. There is no paratracheal and pretracheal adenopathy. Lungs appear normal. Discussion entered into with the patient about staying in the hospital versus going home and decision made to allow him to go home. He has a plan to fly to the [facility] tomorrow leaving about 1700 hrs. it is a proper plane or likely be under 10,000 feet therefore oxygen support would not be required as the cabin would not need to be pressurized. He is currently febrile and he will receive 975 g of Tylenol now. Heparin flush will be given to flush his Port-A-Cath. Started him on Omnicef 300 mg twice a day for suspected pneumonia left lower lobe with the first tablet due tomorrow morning. Departure - Departure Time of Disposition: 19:01 Disposition: Home, Self-Care 01 Condition: Fair Clinical Impression: Thymus neoplasm, Pleural effusion Pneumonia Qualifiers: Pneumonia type: due to unspecified organism Laterality: left Lung location: lower lobe of lung Qualified Code(s): J18.1 - Lobar pneumonia, unspecified organism Prescriptions: Cefdinir [Omnicef] 300 mg PO BID #20 cap Referrals: Ross Joy MD [Primary Care Provider] - Forms: ED Department Discharge Additional Instructions: Evaluation in the emergency room today in regards to development of left-sided pleuritic chest pain or increased pain on palpation of the ribs particularly the left upper anterior chest. Associated development of fever and chills while receiving infusion of fluids at the infusion center this afternoon. This precipitated a visit to the ED today. Lab work does suggest that there is an underlying inflammatory/infective condition. You are febrile. Blood cultures 2 and septic workup work carried out. Chest x-ray suggested an infiltrate in the left lower lobe of the lung. CT scan of the chest was therefore carried out i.e. by CT pulmonary angiogram which ruled out any blood clots in the lungs. It does reveal fluid in the bottom of the left lung compatible with a pleural effusion. Compression consolidation of the left lower lobe of the lung with suspect pneumonia. There is some nodularity involving the between the upper and lower lobes of the lungs on the left side. This can be irritating the pleura which may be continuing to part of your left chest wall pain. Treatment was started in the ED with intravenous Rocephin 2 g IV for antibiotics. You will need to take Omnicef 300 mg twice daily for next 10 days as an oral tablet for pneumonia. First tablet would be due tomorrow morning. A copy of your labs. ECG and your CT and chest x-ray will be given to you at the time of discharge today to take to the [facility] tomorrow as planned. Continue pain medication as needed and Tylenol as needed for fever relief. Return to the ED if you develop any further problems in the next 24 hours such as increased shortness of breath or uncontrolled pain. - My Orders Last 24 Hours: My Active Orders 01/20/18 16:30 EKG Documentation Completion [RC] STAT Chest 1V Frontal [CR] Stat CULTURE BLOOD [BC] Stat Blood Culture x2 Reflex Set [OM.PC] Stat 01/20/18 16:45 CULTURE BLOOD [BC] Stat 01/20/18 17:24 Chest PE [Ang Chest] [CT] Stat 01/20/18 17:53 Sodium Chloride 0.9% [Saline Flush] 10 ml FLUSH ONETIME PRN - Assessment/Plan Last 24 Hours: My Active Orders 01/20/18 16:30 EKG Documentation Completion [RC] STAT Chest 1V Frontal [CR] Stat CULTURE BLOOD [BC] Stat Blood Culture x2 Reflex Set [OM.PC] Stat 01/20/18 16:45 CULTURE BLOOD [BC] Stat 01/20/18 17:24 Chest PE [Ang Chest] [CT] Stat 01/20/18 17:53 Sodium Chloride 0.9% [Saline Flush] 10 ml FLUSH ONETIME PRN
[2018-01-20] MEDS ORDERED: cefTRIAXone 2 GM in Sodium Chloride 0.9% 100 ML IV ONE (17:23)
[2018-01-20] MEDS ORDERED: Iopamidol 755 MG/ML 50 ML Bottle IVPUSH ONE (17:53)
[2018-01-20] MEDS ORDERED: Iopamidol 755 Mg/ML 100 ML Bottle IVPUSH ONE (17:53)
[2018-01-20] MEDS ORDERED: Sodium Chloride 0.9% 10 ML Syringe FLUSH PRN (17:53)
[2018-01-20] MEDS ORDERED: Acetaminophen 325 MG Tab PO ONE (19:01)
--- NOTE | 2018-01-21 07:37 | CR ---
Chest: Frontal view of the chest was obtained. Comparison: Prior chest x-ray of 12/29/17 Mediastinal adenopathy is again noted. Small left-sided pleural effusion is seen as an interval change from prior chest x-ray. Increased density within the left lung base is seen. Right lung appears to be clear. Right-sided infusion port is seen. No acute bony abnormality is appreciated. Impression: 1. Small left-sided pleural effusion. 2. Increased density within the left base either due to atelectasis or pneumonia. 3. Stable mediastinal adenopathy from prior chest x-ray. Diagnostic code #9
--- NOTE | 2018-01-21 07:37 | CT ---
CT chest Technique: Multiple axial sections through the chest were obtained. Intravenous contrast was utilized. Study has been performed as a pulmonary angiogram protocol. Comparison: Prior CT chest of 02/10/15. Findings: Areas of pericardial thickening are seen. Confluent soft tissue density identified within the anterior mediastinum. Enlarged lymph nodes seen within the right paratracheal region. Slightly enlarged lymph nodes seen within the left hilar region. Left-sided pleural effusion is seen which shows some loculations. Nodular thickening noted along the left major fissure. Areas of atelectasis are noted within both lungs, worse on the left side. Consolidation seen within the left base. No findings of pulmonary embolism. There is soft tissue density within the left retrocrural region compatible with additional adenopathy. Other portions of the visualized upper abdominal structures are within normal limits. Impression: 1. Confluent soft tissue density within the left anterior mediastinum with areas of adenopathy. Soft tissue density causes some pericardial thickening as well as nodular thickening within the major fissure. Findings have worsened from prior CT exam raising the possibility of worsening neoplasm. Please correlate if etiology is known. 2. Small left-sided pleural effusion showing loculations. Difficult to exclude pleural metastatic pleural disease as an etiology. 3. Retrocrural adenopathy within the upper abdomen. 4. No findings of pulmonary embolism are seen. 5. Consolidation within the left base either due to atelectasis or pneumonia if the patient has correlating symptoms. Diagnostic code #9 I agree with preliminary report from [facility], finalized at 01/20/18, 7:43 PM Central Time
== END 2018-01-20 19:17 | disposition home or self-care (01) ==
LOC: JD.ED 16:11
DX: J18.9 Pneumonia, unspecified organism (principal); J90 Pleural effusion, not elsewhere classified; C37 Malignant neoplasm of thymus; Z88.1 Allergy status to other antibiotic agents; Z79.899 Other long term (current) drug therapy
CPT/HCPCS: 36415; 71045; 71275; 80053; 82553; 83605; 83735; 83880; 84484; 85025; 85610; 86140; 87040; 93005; 96365; 99285; A9270; J0696; J1642; J7030; J7050; Q9967; 93010; 99284

== ENCOUNTER 2018-04-09 12:30 | Inpatient (IN) | payer BC ==
--- NOTE | 2018-04-09 14:07 | EDM.PDOC ---
ED HPI GENERAL MEDICAL PROBLEM - General Chief Complaint: Possible Sepsis Stated Complaint: POSS. INFECTION Time Seen by Provider: 04/09/18 13:57 Source of Information: Reports: Patient History Limitations: Reports: No Limitations - History of Present Illness INITIAL COMMENTS - FREE TEXT/NARRATIVE: 42-year-old male presents to the ED for evaluation. He was over at [facility] this morning receiving IV fluids when he developed chills. There is no documentation of a fever. Patient states she's been experiencing intermittent chills and actually had val rigors about 5 days ago. Intermittently he experiences chills and sweats. Sweats often made worse by taking Tylenol and/or Advil. 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 He started feeling unwell around 2016. He had mediastinoscopy and biopsies performed October 26 which confirmed the pathology. On 2017 the patient presented to the [facility] and underwent a PET/CT scan that unfortunately demonstrated widespread metastatic disease coming from the anterior mediastinum and extending to involve multiple bones and lymph nodes. SJEAL therapy at home on November 17. He has been receiving treatments with a combination of cisplatin, doxorubicin, and cyclophosphamide during the same week he also received. Of radiation treatments to some of the affected bones in his spine. On March 30, 2018 the patient had restaging PET /CT scan which revealed per progress of his metastatic disease to the spine and liver. At this point patient was recommended to stop taking the current regimen of cyclophosphamide doxorubicin and cisplatin. He indicates that he has not received any chemotherapy for about 5 weeks. He presented to the [facility] today for infusion of fluids. Lab work identifying them to be significantly anemic and with his history of recurrent chills and fever? Suspect he may have occult infective process and he was sent to the ED for further evaluation. Count today was 12.1 with a absolute neutrophil count of 9.9. This is 82% lymphocytes. No bands reported. Troponin was low at 7.1 with hematocrit of 22.2. Platelet count is 453,000. Chemistry revealed a blood sugar 148. BUN was 12 with a creatinine of 1.0. Sodium was low at 129 with a potassium of 3.4. Chloride is 87 with a bicarbonate of 31 and aion gap with potassium is 14. Onset: Gradual (Gradually feeling worse over the last 4-5 days with intermittent chills and perhaps rigors 5 days ago. Very poor appetite. Feels cold all the time.) Duration: Day(s):, Intermittent, Waxing/Waning Location: Reports: Generalized Quality: Reports: Other Severity: Moderate (A 90 chronic deep aching pain right anterior chest wall primarily 610) Improves with: Reports: None Worsens with: Reports: Other, Movement Context: Reports: Other (Patient has known widespread metastatic carcinoma involving multiple bones liver or spleen and throughout both lungs. It's unclear whether or not he has brain metastatic disease.). Denies: Activity ( Coughing and touching the area.), Exercise, Lifting, Sick Contact Associated Symptoms: Reports: Chest Pain, Cough, Diaphoresis ( intermittent fever and chills although afebrile in the ED.), Fever/Chills (Hasn't eaten much solids at all in 2 days), Loss of Appetite, Malaise (Chronic nonproductive cough ), Shortness of Breath, Weakness (Underlies), Other (Night sweats as well. Appreciates that he developed sweats when taking Tylenol or Motrin.). 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: Reports: Other (see below) (Recently MS Minerva changed from 20 mg twice a day to 40 mg twice a day of which she's only taken 2 or 3 tablets as he didn't like the way it made him feel.) Right Chest Pain Score (Numeric/FACES): 8 - Related Data Allergies Allergy/AdvReac Type Severity Reaction Status Date / Time ciprofloxacin HCl Allergy Facial Verified 04/09/18 12:45 [From Cipro] Swelling levofloxacin [From Levaquin] Allergy Rash Verified 04/09/18 12:45 Home Meds: Home Meds Cefdinir [Omnicef] 300 mg PO BID #20 cap 01/20/18 [Rx] Ondansetron HCl [Zofran] 8 mg PO Q8H PRN 01/20/18 [History] Prochlorperazine Maleate [Compazine] 10 mg PO QID PRN 01/20/18 [History] oxyCODONE ER [OxyCONTIN] 10 mg PO Q8H PRN 01/20/18 [History] oxyCODONE HCl/Acetaminophen [oxyCODONE-Acetaminophen 5-325] 1 - 2 tab PO Q4H PRN 01/20/18 [History] Past Medical History Cardiovascular History: Reports: LA, Other (See Below) Other Cardiovascular History: pericardial window placement, LA secondary to reaction to levaquin Respiratory History: Reports: Other (See Below) Other Respiratory History: thymus squamous cell carcinoma Other Genitourinary History: prostitis Oncologic (Cancer) History: Reports: Other (See Below) Other Oncologic History: thymus squamous cell carcinoma --diagnosis made at the end of October 24. From by PET scan recently to be fairly static. Currently has completed 3 courses of chemotherapy and is scheduled to travel to the [facility] tomorrow for repeat PET scan to decide on further treatment and management. He has had high-dose steroids as part of his treatment plan. Has had previous development of pericardial effusion that required drainage but no cancer cells were identified in the pericardial fluid. No definite metastatic disease I believe to both lungs involving the pleura. - Past Surgical History Other Male Surgeries/Procedures: Vasectomy 5 weeks ago Social & Family History - Family History Cardiac: Reports: Other (See Below) Other Cardiac Family History: WPW syndrome - Tobacco Use Smoking Status *Q: Never Smoker - Caffeine Use Caffeine Use: Reports: Coffee - Recreational Drug Use Recreational Drug Use: No - Living Situation & Occupation Living situation: Reports: Occupation: Disabled ED ROS GENERAL - Review of Systems Review Of Systems: See Below Constitutional: Reports: Fever, Chills, Malaise, Weakness, Fatigue, Decreased Appetite (as not eaten any solids for at least 2 days.), Weight Loss HEENT: Reports: No Symptoms Respiratory: Reports: Shortness of Breath, Cough. Denies: Wheezing, Pleuritic Chest Pain (Minimal exertion), Sputum, Hemoptysis (Intermittent cough nonproductive), Other Cardiovascular: Reports: Chest Pain ( chronically chest pain primarily right lower ribs 89 and 10), Blood Pressure Problem, Dyspnea on Exertion ( Occasionally accumulation in his lower extremities usually after chemotherapy), Edema, Orthopnea (Usually runs a bit low.). Denies: Claudication, Lightheadedness Endocrine: Reports: Fatigue ( persistent for several months now.) GI/Abdominal: Reports: Anorexia, Constipation (Has had intermittent issues with constipation recently got cleaned out with medications.), Decreased Appetite : Reports: No Symptoms Musculoskeletal: Reports: Joint Pain (Knees hips and neck at times.) Skin: Reports: Pallor, Other (Dry skin alopecia secondary to chemotherapy.) Neurological: Reports: Dizziness, Difficulty Walking, Weakness. Denies: Confusion, Headache, Numbness, Paresthesia, Pre-Existing Deficit, Seizure, Syncope, Tingling, Tremors, Trouble Speaking, Change in Speech Psychiatric: Reports: Depression (Related to chronic illness.) Hematologic/Lymphatic: Reports: Anemia, Easy Bruising Immunologic: Reports: No Symptoms ED EXAM, SEPSIS - Physical Exam Exam: See Below Exam Limited By: No Limitations General Appearance: Alert, Anxious, Other (Mildly anxious he is a bit slow in terms of answering questions.) Eye Exam: Bilateral Eye: Normal Fundi, Other (Has moderate pallor of both peripheral margins.) Ears: Normal TMs Nose: Normal Inspection, Normal Mucosa Throat/Mouth: Normal Inspection, Normal Lips, Normal Teeth, Other Head: Atraumatic (Tongue is mildly dry and coated.), Normocephalic, Other Neck: Normal Inspection (Alopecia secondary to chemotherapy), Supple, Non-Tender , Full Range of Motion, Other (No palpable supraclavicular or infraclavicular adenopathy.). No: Lymphadenopathy (L), Lymphadenopathy (R) Respiratory/Chest: No Respiratory Distress, Rales (He has decreased air entry to both lung finley. He has dullness to percussion on the left particularly suggesting a pleural effusion. There are rales bilaterally however the rales on the left are heard best just below his scapula.), Other (Has an intermittent dry cough.). No: Rhonchi Cardiovascular: Normal Peripheral Pulses, No Gallop, No Murmur, No Rub, Tachycardia, Other (Patient localized tenderness to his anterior right lower ribs. This is particularly the ninth rib and 10th rib in the mid clavicular line ) Peripheral Pulses: 3+: Posterior Tibial (L), Posterior Tibial (R), Dorsalis Pedis (L), Dorsalis Pedis (R) GI/Abdominal Exam: Distended (Diffusely hyperactive bowel sounds. Diffusely distended and tympanitic to percussion in all 4 quadrants.), Abnormal Bowel Sounds Back: Normal Inspection, Full Range of Motion, CVA Tenderness (R). No: CVA Tenderness (L) (Mild) Extremities: Pedal Edema (Mild at the ankles.) Neurological: Alert, Oriented, CN II-XII Intact, Slow to Respond. No: Memory Loss Recent Events, Abnormal Gait, Abnormal Reflexes Psychiatric: Flat Affect Skin: Warm, Dry, Intact, Pallor (Moderate) Course - Vital Signs Last Recorded V/S: Last Vital Signs Temp 37.3 C 04/09/18 17:03 Pulse 107 H 04/09/18 17:03 Resp 18 04/09/18 17:03 BP 111/73 04/09/18 17:03 Pulse Ox 91 L 04/09/18 17:03 - Orders/Labs/Meds Orders: Active Orders 24 hr Category Date Time Status EKG Documentation Completion [RC] STAT Care 04/09/18 14:14 Active Verify Patient Consent Obtain [RC] ASDIRECTED Care 04/09/18 17:01 Active Abdomen 1V Flat [CR] Stat Exams 04/09/18 16:30 Taken CULTURE BLOOD [BC] Stat Lab 04/09/18 14:25 Received CULTURE BLOOD [BC] Stat Lab 04/09/18 14:35 Received PACKED CELLS [RED BLOOD CELLS LP] [BBK] Stat Lab 04/09/18 14:25 Results PATIENT RETYPE [BBK] Stat Lab 04/09/18 14:25 Results TYPE AND SCREEN [BBK] Stat Lab 04/09/18 14:25 Results Dextrose 5%-Lactated Ringers 1,000 ml Med 04/09/18 14:30 Active IV ASDIRECTED Sodium Chloride 0.9% [Normal Saline] 1,000 ml Med 04/09/18 17:15 Active IV ASDIRECTED Blood Culture x2 Reflex Set [OM.PC] Stat Oth 04/09/18 14:15 Ordered Transfuse PRBC [Transfuse Red Blood Cells] [COMM] Stat Oth 04/09/18 17:01 Ordered Medication Orders Dextrose/Lactated Ringer's (Dextrose 5%-Lactated Ringers) 1,000 mls @ 500 mls/ hr IV ASDIRECTED DANIEL Last Admin: 04/09/18 14:34 Dose: 500 mls/hr Sodium Chloride (Normal Saline) 1,000 mls @ 125 mls/hr IV ASDIRECTED DANIEL Labs: Laboratory Tests 04/09/18 04/09/18 04/09/18 Range/Units 14:25 14:25 14:25 WBC 10.12 H (4.23-9.07) K/mm3 RBC 2.65 L (4.63-6.08) M/mm3 Hgb 6.8 L* (13.7-17.5) gm/L Hct 21.5 L (40.1-51.0) % MCV 81.1 (79.0-92.2) fl MCH 25.7 (25.7-32.2) pg MCHC 31.6 L (32.2-35.5) g/dl RDW Std Deviation 52.5 H (35.1-43.9) fL Plt Count 418 H (163-337) K/mm3 MPV 8.6 L (9.4-12.3) fl Neutrophils % (Manual) 82 H (40-60) % Band Neutrophils % 0 (0-10) % Lymphocytes % (Manual) 13 L (20-40) % Atypical Lymphs % 0 % Monocytes % (Manual) 5 (2-10) % Eosinophils % (Manual) 0 L (0.8-7.0) % Basophils % (Manual) 0 L (0.2-1.2) Toxic Granulation 2+ moderate Platelet Estimate Adequate Plt Morphology Comment Normal Hypochromasia 2+ moderate Anisocytosis 2+ moderate Microcytosis 2+ moderate RBC Morph Comment Not Reportable Sodium 132 L (136-145) mEq/L Potassium 3.6 (3.5-5.1) mEq/L Chloride 95 L (98-107) mEq/L Carbon Dioxide 28 (21-32) mEq/L Anion Gap 12.6 (5-15) BUN 12 (7-18) mg/dL Creatinine 1.1 (0.7-1.3) mg/dL Est Cr Clr Drug Dosing 82.63 mL/min Estimated GFR (MDRD) > 60 (>60) mL/min BUN/Creatinine Ratio 10.9 L (14-18) Glucose 119 H (74-106) mg/dL Calcium 8.6 (8.5-10.1) mg/dL Magnesium 1.8 (1.8-2.4) mg/dl Total Bilirubin 0.4 (0.2-1.0) mg/dL AST 55 H (15-37) U/L ALT 34 (16-63) U/L Alkaline Phosphatase 86 (46-116) U/L Lactate Dehydrogenase 983 H (85-227) U/L C-Reactive Protein 33.4 H* (<1.0) mg/dL NT-Pro-B Natriuret Pep 435 H (0-125) pg/mL Total Protein 6.7 (6.4-8.2) g/dl Albumin 2.4 L (3.4-5.0) g/dl Globulin 4.3 gm/dL Albumin/Globulin Ratio 0.6 L (1-2) Blood Type Gel Antibody Screen Crossmatch 04/09/18 Range/Units 14:25 WBC (4.23-9.07) K/mm3 RBC (4.63-6.08) M/mm3 Hgb (13.7-17.5) gm/L Hct (40.1-51.0) % MCV (79.0-92.2) fl MCH (25.7-32.2) pg MCHC (32.2-35.5) g/dl RDW Std Deviation (35.1-43.9) fL Plt Count (163-337) K/mm3 MPV (9.4-12.3) fl Neutrophils % (Manual) (40-60) % Band Neutrophils % (0-10) % Lymphocytes % (Manual) (20-40) % Atypical Lymphs % % Monocytes % (Manual) (2-10) % Eosinophils % (Manual) (0.8-7.0) % Basophils % (Manual) (0.2-1.2) Toxic Granulation Platelet Estimate Plt Morphology Comment Hypochromasia Anisocytosis Microcytosis RBC Morph Comment Sodium (136-145) mEq/L Potassium (3.5-5.1) mEq/L Chloride (98-107) mEq/L Carbon Dioxide (21-32) mEq/L Anion Gap (5-15) BUN (7-18) mg/dL Creatinine (0.7-1.3) mg/dL Est Cr Clr Drug Dosing mL/min Estimated GFR (MDRD) (>60) mL/min BUN/Creatinine Ratio (14-18) Glucose (74-106) mg/dL Calcium (8.5-10.1) mg/dL Magnesium (1.8-2.4) mg/dl Total Bilirubin (0.2-1.0) mg/dL AST (15-37) U/L ALT (16-63) U/L Alkaline Phosphatase (46-116) U/L Lactate Dehydrogenase (85-227) U/L C-Reactive Protein (<1.0) mg/dL NT-Pro-B Natriuret Pep (0-125) pg/mL Total Protein (6.4-8.2) g/dl Albumin (3.4-5.0) g/dl Globulin gm/dL Albumin/Globulin Ratio (1-2) Blood Type A POSITIVE Gel Antibody Screen Negative Crossmatch See Detail Meds: Medications Generic Name Dose Route Start Last Admin Trade Name Freq PRN Reason Stop Dose Admin Dextrose/Lactated Ringer's 1,000 mls @ 500 mls/hr 04/09/18 14:30 04/09/18 14: 34 Dextrose 5%-Lactated Ringers IV 500 mls/hr ASDIRECTED DANIEL Administration Sodium Chloride 1,000 mls @ 125 mls/hr 04/09/18 17:15 Normal Saline IV ASDIRECTED DANIEL Discontinued Medications Generic Name Dose Route Start Last Admin Trade Name Freq PRN Reason Stop Dose Admin Hydromorphone HCl 0.5 mg 04/09/18 14:25 04/09/18 14:36 Dilaudid IVPUSH 04/09/18 14:26 0.5 mg ONETIME ONE Administration Hydromorphone HCl 1 mg 04/09/18 16:31 04/09/18 16:49 Dilaudid IVPUSH 04/09/18 16:32 1 mg ONETIME ONE Administration Metoclopramide HCl 10 mg 04/09/18 14:25 04/09/18 14:34 Reglan IVPUSH 04/09/18 14:26 10 mg ONETIME ONE Administration - Radiology Interpretation Free Text/Narrative:: 42-year-old male sent over to the hospital from [facility] where he had been receiving infusion therapy. Reported to them that he's been experiencing intermittent fever and chills for the last 3-5 days. Had val rigors about 5 days ago. 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 This was identified in September of this year. Social he's been followed primarily to the [facility]. Last chemotherapy was given 5 weeks ago. Sent PET scan done March 30 revealed increased metastatic disease involving his spleen liver and further bone metastatic disease. He was sent over primarily for blood transfusion and to be monitored for possibility of sepsis. Chest x-ray is unchanged to previous. He has a elevated left hemidiaphragm which suggests partial paralysis. This is likely due to invasion of the phrenic nerve from his tumor. He appears to have a chronic left-sided pleural effusion. Central lung markings are also increased on the left side mostly appearing to be chronic. There is prominence of the left hilum which correlates confluence of soft tissue density on recent chest CT scan exam. The right lung remains clear. Heart is enlarged right upper anterior chest. - Re-Assessments/Exams Free Text/Narrative Re-Assessment/Exam: 04/09/18 16:00 Labs reveal a total white count of 10.12. 82% neutrophils and no bands reported. Hemoglobin is very low at 6.8 with hematocrit of 21.5. MCV is 81.1. Platelet count is 418,000. There is a 2+ moderate granulation pattern reported. There is 2+ hypochromasia and anisocytosis and microcytosis reported on peripheral smear. Sodium is mildly low at 132 with a potassium of 3.6. Chloride is 95. Bicarbonate is 28. And a gap is normal at 12.6. BUN is 12. Creatinine is 1.1. GFR remains greater than 60. Glucose is 119. Calcium is 8.6. Magnesium low normal at 1.8. Liver function shows a bilirubin of 0.4. AST is mildly elevated at 55 ALT is normal at 34. Alkaline phosphatase normal at 86. Lactate dehydrogenase is elevated at 983. C-reactive protein is markedly elevated at 33.4. Urinalysis is not yet available.. 04/09/18 16:32 Discussed the findings with the patient and his . Nothing alarming came back in his labs other than his hemoglobin at 6.8. Is concerning for likely bone marrow involvement with his cancer. Since he's not receive chemotherapy for about 5 weeks. He reports the pain in his right ribs is coming back. The initial dose to the edge off. Will give him Dilaudid 1 mg IV. Spoke with Dr. Brasher about admission to the hospital for observation status for monitoring for possible development of fever and if he has reported chills blood cultures could be done at that time. May well have an occult infection versus tumor lysis problems. Urinalysis is not yet available. Also he requires an x-ray of his abdomen to assess the degree of constipation problems. This will now be ordered. It is likely that his BNP is elevated. He has a history of pericardial involvement of his cancer. I suspect he will need a dose of Lasix in between units of blood. Each unit tentatively will be transfused over. About 3 hours. Therefore it is my advice that he stays in hospital per observation status for monitoring purposes fever/chills and to receive 3 units of packed RBCs. 04/09/18 16:41 spoke with president [employer] hospitalist--Dr. Brasher. Plan will be to admit the patient. CT status. My ideas that he would come in as an observation patient to receive 3 units of blood and then go from there depending if he develops fever or chills well in hospital. 04/09/18 17:22 one view of the abdomen was obtained and it shows a large amount of air throughout the colon and a little bit of air in the small bowel. There is no sign of bowel obstruction however and there is no increased stool. Patient advised in this regard. 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 CHF NYHA class III (symptoms with mildly strenuous activities) Qualifiers: Congestive heart failure type: systolic Congestive heart failure chronicity: chronic Qualified Code(s): I50.22 - Chronic systolic (congestive) heart failure - Discharge Information Referrals: Ross Joy MD [Primary Care Provider] - Forms: ED Department Discharge - My Orders Last 24 Hours: My Active Orders 04/09/18 14:14 EKG Documentation Completion [RC] STAT 04/09/18 14:15 Blood Culture x2 Reflex Set [OM.PC] Stat 04/09/18 14:25 CULTURE BLOOD [BC] Stat PACKED CELLS [RED BLOOD CELLS LP] [BBK] Stat PATIENT RETYPE [BBK] Stat TYPE AND SCREEN [BBK] Stat 04/09/18 14:30 Dextrose 5%-Lactated Ringers 1,000 ml IV ASDIRECTED 04/09/18 14:35 CULTURE BLOOD [BC] Stat 04/09/18 16:30 Abdomen 1V Flat [CR] Stat 04/09/18 17:01 Verify Patient Consent Obtain [RC] ASDIRECTED Transfuse PRBC [Transfuse Red Blood Cells] [COMM] Stat 04/09/18 17:15 Sodium Chloride 0.9% [Normal Saline] 1,000 ml IV ASDIRECTED - Assessment/Plan Last 24 Hours: My Active Orders 04/09/18 14:14 EKG Documentation Completion [RC] STAT 04/09/18 14:15 Blood Culture x2 Reflex Set [OM.PC] Stat 04/09/18 14:25 CULTURE BLOOD [BC] Stat PACKED CELLS [RED BLOOD CELLS LP] [BBK] Stat PATIENT RETYPE [BBK] Stat TYPE AND SCREEN [BBK] Stat 04/09/18 14:30 Dextrose 5%-Lactated Ringers 1,000 ml IV ASDIRECTED 04/09/18 14:35 CULTURE BLOOD [BC] Stat 04/09/18 16:30 Abdomen 1V Flat [CR] Stat 04/09/18 17:01 Verify Patient Consent Obtain [RC] ASDIRECTED Transfuse PRBC [Transfuse Red Blood Cells] [COMM] Stat 04/09/18 17:15 Sodium Chloride 0.9% [Normal Saline] 1,000 ml IV ASDIRECTED
[2018-04-09] MEDS ORDERED: HYDROmorphone 0.5 MG/0.5 ML SYRINGE IVPUSH ONE ×2 (14:25→16:31)
[2018-04-09] MEDS ORDERED: Metoclopramide 10 MG/2 ML SDV IVPUSH ONE (14:25)
[2018-04-09] MEDS ORDERED: Dextrose 5%-Lactated Ringers 1,000 ML IV SCH (14:30)
--- NOTE | 2018-04-09 15:09 | CR ---
Chest: Frontal view of the chest was obtained. Comparison: Prior chest CT study of 01/20/18 and chest x-ray 01/20/18. Elevated left hemidiaphragm is seen likely representing small and chronic pleural effusion. Central lung markings are increased on the left side mostly appearing to be chronic. Prominence of the left hilum is seen which correlates to confluence soft tissue density on recent chest CT. Right lung is clear. Heart is enlarged. Right-sided infusion catheter is seen. Impression: 1. Findings as noted above. No appreciable change from prior chest x-ray and chest CT is seen. Diagnostic code #9
[2018-04-09] MEDS ORDERED: Sodium Chloride 0.9% 1,000 ML IV SCH (17:15)
[2018-04-09] MEDS ORDERED: Acetaminophen/oxyCODONE 325-5 MG Tab PO PRN (18:41)
[2018-04-09] MEDS ORDERED: Ondansetron 4 MG Tab.DIS PO PRN (18:41)
[2018-04-09] MEDS ORDERED: Prochlorperazine 5 MG Tab PO PRN (18:41)
[2018-04-09] MEDS ORDERED: oxyCODONE ER 10 MG TAB.ER PO PRN (18:41)
--- NOTE | 2018-04-09 18:41 | PCM.HP ---
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 He was initially at [facility] to receive intravenous hydration when he developed sudden chills and fever. At the same time, he was found to have significantly low level of hemoglobin. As a result, he was sent to the emergency department for suspicion of occult infectious process and for possible transfusion to resolve his anemia. Patient has completed 5 cyclesof chemotherapy along with 2 cycle of radiation therapy. He is scheduled to have immunotherapy and he follows Dr. Joy for his oncologic care. His initial workup in emergency department showed a CBC remarkable for WBC of 10.12, RBC of 2.65, hemoglobin of 6.8, hematocrit of 21.5, MCHC of 31.6, RDW of 22.5, platelet count of 418, MPV of 8.6, neutrophils of 82%, and lymphocytes of 13%. His chemistry is significant for sodium of 132, chloride of 95, glucose of 119, AST of 55, lactic dehydrogenase of 983, CRP of 32.4, proBNP of 435, and albumin at 2.4. His chest x-ray report reads elevated left hemidiaphragm likely representing small and chronic pleural effusion. Central lung markings are increased on the left side mostly appearing to be chronic. Prominence of the left hilum is seen which correlates to confluence soft tissue density on recent chest CT. Right lung is clear. Heart is enlarged. Right-sided infusion catheter is seen. Patient is being admitted for worsening metastatic disease and symptomatic anemia. He is full code. Right Chest Pain Score (Numeric/FACES): 8 - Related Data Allergies/Adverse Reactions: Allergies Allergy/AdvReac Type Severity Reaction Status Date / Time ciprofloxacin HCl Allergy Facial Verified 04/09/18 12:45 [From Cipro] Swelling levofloxacin [From Levaquin] Allergy Rash Verified 04/09/18 12:45 Home Medications: Home Meds Ondansetron HCl [Zofran] 8 mg PO Q8H PRN 01/20/18 [History] Prochlorperazine Maleate [Compazine] 10 mg PO QID PRN 01/20/18 [History] oxyCODONE ER [OxyCONTIN] 20 mg PO Q8H PRN 01/20/18 [History] oxyCODONE HCl/Acetaminophen [oxyCODONE-Acetaminophen 5-325] 1 - 2 tab PO Q4H PRN 01/20/18 [History] Dronabinol [Marinol] 2.5 mg PO TIDAC #30 cap 04/10/18 [Rx] Past Medical History Cardiovascular History: Reports: MD, Other (See Below) Other Cardiovascular History: pericardial window placement, MD secondary to reaction to levaquin Respiratory History: Reports: Other (See Below) Other Respiratory History: thymus squamous cell carcinoma Other Genitourinary History: prostitis Oncologic (Cancer) History: Reports: Other (See Below) Other Oncologic History: thymus squamous cell carcinoma --diagnosis made at the end of October 24. From by PET scan recently to be fairly static. Currently has completed 3 courses of chemotherapy and is scheduled to travel to the [facility] tomorrow for repeat PET scan to decide on further treatment and management. He has had high-dose steroids as part of his treatment plan. Has had previous development of pericardial effusion that required drainage but no cancer cells were identified in the pericardial fluid. No definite metastatic disease I believe to both lungs involving the pleura. - Past Surgical History Other Male Surgeries/Procedures: Vasectomy 5 weeks ago Social & Family History - Family History Cardiac: Reports: Other (See Below) Other Cardiac Family History: WPW syndrome - Tobacco Use Smoking Status *Q: Never Smoker - Caffeine Use Caffeine Use: Reports: Coffee - Recreational Drug Use Recreational Drug Use: No - Living Situation & Occupation Living situation: Reports: Occupation: Disabled H&P Review of Systems - Review of Systems: Review Of Systems: See Below General: Reports: Fever, Chills, Malaise, Weakness, Fatigue, Night Sweats, Decreased Appetite HEENT: Reports: No Symptoms Pulmonary: Denies: Shortness of Breath, Wheezing, Pleuritic Chest Pain, Cough, Sputum Cardiovascular: Denies: Chest Pain, Palpitations, Dyspnea on Exertion, Edema, Lightheadedness, Syncope, Blood Pressure Problem Gastrointestinal: Reports: Constipation (previously), Diarrhea (now watery), Decreased Appetite, Nausea, Vomiting. Denies: Abdominal Pain, Difficulty Swallowing Genitourinary: Reports: No Symptoms Musculoskeletal: Reports: Back Pain, Muscle Pain Skin: Reports: Pallor. Denies: Cyanosis, Mottled, Diaphoresis, Bruising, Rash, Erythema Psychiatric: Denies: Confusion, Depression, Anxiety, Agitation, Hallucinations Neurological: Reports: Weakness. Denies: Confusion, Headache, Pre-Existing Deficit, Seizure, Syncope, Difficulty Walking, Gait Disturbance Hematologic/Lymphatic: Reports: Anemia. Denies: Easy Bruising Immunologic: Reports: No Symptoms Exam - Exam Exam: See Below - Vital Signs Vital Signs: Last Vital Signs Temp 37.1 C 04/09/18 17:05 Pulse 108 H 04/09/18 17:05 Resp 18 04/09/18 17:05 BP 108/73 04/09/18 17:05 Pulse Ox 93 L 04/09/18 17:05 Weight: 78.018 kg - Exam General: Alert, Oriented, Cooperative. No: Mild Distress HEENT: Conjunctiva Clear, EACs Clear, Hearing Intact, Mucosa Moist & [place], Nares Patent, Normal Nasal Septum, Pupils Equal, Pupils Reactive Neck: Supple, Trachea Midline, Full Range of Motion, Lymphadenopathy Lungs: Normal Respiratory Effort, Decreased Breath Sounds, Other (port a cath) Cardiovascular: Regular Rate, Regular Rhythm GI/Abdominal Exam: Normal Bowel Sounds, Soft, Non-Tender, No Organomegaly, No Distention, No Abnormal Bruit, No Mass (Male) Exam: Deferred Rectal (Males) Exam: Deferred Back Exam: Normal Inspection, Decreased Range of Motion Extremities: Normal Inspection, Normal Range of Motion, Non-Tender, No Pedal Edema, Normal Capillary Refill Peripheral Pulses: 2+: Posterior Tibial (L), Posterior Tibial (R), Dorsalis Pedis (L), Dorsalis Pedis (R) Skin: Warm, Dry, Intact Skin Alteration Location (Drawings Not To Scale): 1 - port-A-cath Neuro Extensive - Mental Status: Oriented x3, Normal Cognition, Memory Intact Neuro Extensive - Motor, Sensory, Reflexes: CN II-XII Intact (limited but fairly intact), Normal Gait Psychiatric: Alert, Normal Affect, Normal Mood - Patient Data Lab Results Last 24 hrs: Laboratory Results - last 24 hr 04/09/18 04/09/18 04/09/18 Range/Units 14:25 14:25 14:25 WBC 10.12 H (4.23-9.07) K/mm3 RBC 2.65 L (4.63-6.08) M/mm3 Hgb 6.8 L* (13.7-17.5) gm/L Hct 21.5 L (40.1-51.0) % MCV 81.1 (79.0-92.2) fl MCH 25.7 (25.7-32.2) pg MCHC 31.6 L (32.2-35.5) g/dl RDW Std Deviation 52.5 H (35.1-43.9) fL Plt Count 418 H (163-337) K/mm3 MPV 8.6 L (9.4-12.3) fl Neutrophils % (Manual) 82 H (40-60) % Band Neutrophils % 0 (0-10) % Lymphocytes % (Manual) 13 L (20-40) % Atypical Lymphs % 0 % Monocytes % (Manual) 5 (2-10) % Eosinophils % (Manual) 0 L (0.8-7.0) % Basophils % (Manual) 0 L (0.2-1.2) Toxic Granulation 2+ moderate Platelet Estimate Adequate Plt Morphology Comment Normal Hypochromasia 2+ moderate Anisocytosis 2+ moderate Microcytosis 2+ moderate RBC Morph Comment Not Reportable Sodium 132 L (136-145) mEq/L Potassium 3.6 (3.5-5.1) mEq/L Chloride 95 L (98-107) mEq/L Carbon Dioxide 28 (21-32) mEq/L Anion Gap 12.6 (5-15) BUN 12 (7-18) mg/dL Creatinine 1.1 (0.7-1.3) mg/dL Est Cr Clr Drug Dosing 82.63 mL/min Estimated GFR (MDRD) > 60 (>60) mL/min BUN/Creatinine Ratio 10.9 L (14-18) Glucose 119 H (74-106) mg/dL Calcium 8.6 (8.5-10.1) mg/dL Magnesium 1.8 (1.8-2.4) mg/dl Total Bilirubin 0.4 (0.2-1.0) mg/dL AST 55 H (15-37) U/L ALT 34 (16-63) U/L Alkaline Phosphatase 86 (46-116) U/L Lactate Dehydrogenase 983 H (85-227) U/L C-Reactive Protein 33.4 H* (<1.0) mg/dL NT-Pro-B Natriuret Pep 435 H (0-125) pg/mL Total Protein 6.7 (6.4-8.2) g/dl Albumin 2.4 L (3.4-5.0) g/dl Globulin 4.3 gm/dL Albumin/Globulin Ratio 0.6 L (1-2) Blood Type Gel Antibody Screen Crossmatch 04/09/18 Range/Units 14:25 WBC (4.23-9.07) K/mm3 RBC (4.63-6.08) M/mm3 Hgb (13.7-17.5) gm/L Hct (40.1-51.0) % MCV (79.0-92.2) fl MCH (25.7-32.2) pg MCHC (32.2-35.5) g/dl RDW Std Deviation (35.1-43.9) fL Plt Count (163-337) K/mm3 MPV (9.4-12.3) fl Neutrophils % (Manual) (40-60) % Band Neutrophils % (0-10) % Lymphocytes % (Manual) (20-40) % Atypical Lymphs % % Monocytes % (Manual) (2-10) % Eosinophils % (Manual) (0.8-7.0) % Basophils % (Manual) (0.2-1.2) Toxic Granulation Platelet Estimate Plt Morphology Comment Hypochromasia Anisocytosis Microcytosis RBC Morph Comment Sodium (136-145) mEq/L Potassium (3.5-5.1) mEq/L Chloride (98-107) mEq/L Carbon Dioxide (21-32) mEq/L Anion Gap (5-15) BUN (7-18) mg/dL Creatinine (0.7-1.3) mg/dL Est Cr Clr Drug Dosing mL/min Estimated GFR (MDRD) (>60) mL/min BUN/Creatinine Ratio (14-18) Glucose (74-106) mg/dL Calcium (8.5-10.1) mg/dL Magnesium (1.8-2.4) mg/dl Total Bilirubin (0.2-1.0) mg/dL AST (15-37) U/L ALT (16-63) U/L Alkaline Phosphatase (46-116) U/L Lactate Dehydrogenase (85-227) U/L C-Reactive Protein (<1.0) mg/dL NT-Pro-B Natriuret Pep (0-125) pg/mL Total Protein (6.4-8.2) g/dl Albumin (3.4-5.0) g/dl Globulin gm/dL Albumin/Globulin Ratio (1-2) Blood Type A POSITIVE Gel Antibody Screen Negative Crossmatch See Detail Result Diagrams: 04/10/18 06:15 04/10/18 06:15 Problem List Initiated/Reviewed/Updated: Yes Orders Last 24hrs: Active Orders 24 hr Category Date Time Status Admission Status [Patient Status] [ADT] Routine ADT 04/09/18 18:31 Active EKG Documentation Completion [RC] STAT Care 04/09/18 14:14 Active Verify Patient Consent Obtain [RC] ASDIRECTED Care 04/09/18 17:01 Active Abdomen 1V Flat [CR] Stat Exams 04/09/18 16:30 Taken CULTURE BLOOD [BC] Stat Lab 04/09/18 14:25 Received CULTURE BLOOD [BC] Stat Lab 04/09/18 14:35 Received PACKED CELLS [RED BLOOD CELLS LP] [BBK] Stat Lab 04/09/18 14:25 Results PATIENT RETYPE [BBK] Stat Lab 04/09/18 14:25 Results TYPE AND SCREEN [BBK] Stat Lab 04/09/18 14:25 Results Dextrose 5%-Lactated Ringers 1,000 ml Med 04/09/18 14:30 Active IV ASDIRECTED Sodium Chloride 0.9% [Normal Saline] 1,000 ml Med 04/09/18 17:15 Active IV ASDIRECTED Blood Culture x2 Reflex Set [OM.PC] Stat Oth 04/09/18 14:15 Ordered Transfuse PRBC [Transfuse Red Blood Cells] [COMM] Stat Oth 04/09/18 17:01 Ordered Medication Orders Dextrose/Lactated Ringer's (Dextrose 5%-Lactated Ringers) 1,000 mls @ 500 mls/ hr IV ASDIRECTED [facility] Last Admin: 04/09/18 14:34 Dose: 500 mls/hr Sodium Chloride (Normal Saline) 1,000 mls @ 125 mls/hr IV ASDIRECTED [facility] Assessment/Plan Comment:: Assessment/Plan: Acute: 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 Joy office but was told to come in and get seen * He is scheduled for Immunotherapy at [facility] * I believe he is getting palliative treatment Malignancy Induced Anemia * 2/2 Above * Hgb/Hct: 6.8/21.5; baseline 07/28.2 01/20/2018 * Currently transfusing PRBCs * Total 3 units of PRBC ordered Failure to Thrive/Generalized Weakness * 2/2 Worsening Metastatic Disease * Has not eaten in a couple of days * Offered Marinol for appetite stimulant--> agreed; will d/c if not response * Dietary consult [facility] * He has diffuse metastatic disease * Him and his do not the severity of his cancer * I do not think they are receptive at this point Chronic: HLD GERD Hx/o Fatty Liver Small Left Sided Pleural Effusion CT scan 01/20/2018 Elevated Left Diaphragm Chronic Pain S/p Eight Sided Port-A-Cath Plan: Admit to the floor Resume Home Meds Continue PPx Abx of Cefdinir Routine AM Labs IS as directed Folic Acid, Thiamine, Vitamin B12 and MVI He can eat whatever he wants SW/CM for d/c planning DVT/GI PPx: Lovenox SubQ and H2B Spiritual Care Consult Code status: 1 He has no insight how bad his cancer is. Poor overall prognosis.
[2018-04-09] MEDS ORDERED: Temazepam 7.5 MG Cap PO PRN (18:43)
[2018-04-09] MEDS ORDERED: Metoprolol Tartrate 5 MG/5 ML SDV IVPUSH PRN (18:43)
[2018-04-09] MEDS ORDERED: HYDROmorphone 0.5 MG/0.5 ML SYRINGE IVPUSH PRN (18:43)
[2018-04-09] MEDS ORDERED: Magnesium Hydroxide 400 MG/5 ML Susp 30 ML Cup PO PRN (18:43)
[2018-04-09] MEDS ORDERED: LORazepam 2 MG/ML SDV IVPUSH PRN (18:43)
[2018-04-09] MEDS ORDERED: Polyethylene Glycol 3350 Powder 17 GM Packet PO PRN (18:43)
[2018-04-09] MEDS ORDERED: Albuterol/Ipratropium 3.0-0.5 MG/3 ML Neb Soln NEB PRN (18:43)
[2018-04-09] MEDS ORDERED: Docusate Sodium 100 MG Cap PO PRN (18:43)
[2018-04-09] MEDS ORDERED: LORazepam 2 MG/ML SDV IV PRN (18:43)
[2018-04-09] MEDS ORDERED: Promethazine 12.5 MG in Sodium Chloride 0.9% 50 ML IV PRN (18:43)
[2018-04-09] MEDS ORDERED: Bisacodyl 5 MG Tab PO PRN (18:43)
[2018-04-09] MEDS ORDERED: hydrALAZINE 20 MG/ML SDV IVPUSH PRN (18:43)
[2018-04-09] MEDS ORDERED: Magnesium Oxide 400 MG Tab PO ONE (19:45)
[2018-04-09] MEDS ORDERED: CEFDINIR 300 MG PO SCH (21:00)
[2018-04-09] MEDS: Ondansetron 4 MG/2 ML SDV IV PRN (21:01)
[2018-04-09] MEDS: Potassium Chloride 20 MEQ Tab.ER PO SCH (21:04)
[2018-04-09] MEDS ORDERED: Folic Acid 1 MG Tab PO ONE (21:27)
[2018-04-09] MEDS ORDERED: Thiamine 100 MG Tab PO ONE (21:29)
[2018-04-09] MEDS ORDERED: Cyanocobalamin (Vitamin B12) 1,000 MCG Tab PO ONE (21:30)
[2018-04-09] MEDS ORDERED: Multivitamins,Therapeutic Tab PO ONE (21:30)
[2018-04-10] MEDS: Potassium Chloride 20 MEQ Tab.ER PO SCH (01:15)
[2018-04-10] MEDS: Ondansetron 4 MG/2 ML SDV IV PRN (07:00)
--- NOTE | 2018-04-10 07:32 | CR ---
Abdomen: Supine view of the abdomen was obtained. Comparison: Previous abdominal x-ray of 12/29/17. Gas noted throughout the colon suspicious for slight colonic ileus. This may relate to the patient's pain medicines. Bowel gas pattern is otherwise unremarkable. No abnormal calcifications or soft tissue abnormality seen. Bony structures are unremarkable. Impression: 1. Slight increased gas within the colon as described above. Diagnostic code #2
[2018-04-10 08:32] VITALS: BP 124/74
[2018-04-10] MEDS ORDERED: Cyanocobalamin (Vitamin B12) 1,000 MCG Tab PO SCH (09:00)
[2018-04-10] MEDS ORDERED: Enoxaparin 40 MG/0.4 ML Syringe SUBCUT SCH (09:00)
[2018-04-10] MEDS: Dronabinol 2.5 MG Cap PO SCH ×2 (09:02→11:00)
--- NOTE | 2018-04-10 10:44 | PCM.DCSUM1 ---
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 He was initially at [facility] to receive intravenous hydration when he developed sudden chills and fever. At the same time, he was found to have significantly low level of hemoglobin. As a result, he was sent to the emergency department for suspicion of occult infectious process and for possible transfusion to resolve his anemia. Patient has completed 5 cyclesof chemotherapy along with 2 cycle of radiation therapy. He is scheduled to have immunotherapy and he follows Dr. Joy for his oncologic care. His initial workup in emergency department showed a CBC remarkable for WBC of 10.12, RBC of 2.65, hemoglobin of 6.8, hematocrit of 21.5, MCHC of 31.6, RDW of 22.5, platelet count of 418, MPV of 8.6, neutrophils of 82%, and lymphocytes of 13%. His chemistry is significant for sodium of 132, chloride of 95, glucose of 119, AST of 55, lactic dehydrogenase of 983, CRP of 32.4, proBNP of 435, and albumin at 2.4. His chest x-ray report reads elevated left hemidiaphragm likely representing small and chronic pleural effusion. Central lung markings are increased on the left side mostly appearing to be chronic. Prominence of the left hilum is seen which correlates to confluence soft tissue density on recent chest CT. Right lung is clear. Heart is enlarged. Right-sided infusion catheter is seen. Patient is being admitted for worsening metastatic disease and symptomatic anemia. He is full code. Diagnosis: Stroke: No Modified Luan Scale: No Symptoms at All Modified [place] Scale Score: 0 - Discharge Data Discharge Date: 04/10/18 Discharge Disposition: Home, Self-Care 01 Condition: Stable - Discharge Diagnosis/Problem(s) (1) Metastatic carcinoma SNOMED Code(s): 194912507, 596515551, 425395551 ICD Code: C79.9 - SECONDARY MALIGNANT NEOPLASM OF UNSPECIFIED SITE Status: Chronic (2) Primary squamous cell carcinoma of thymus SNOMED Code(s): 236560878032960 ICD Code: C37 - MALIGNANT NEOPLASM OF THYMUS Status: Chronic (3) Anemia SNOMED Code(s): 721383516 ICD Code: D64.9 - ANEMIA, UNSPECIFIED Status: Acute Problem Details: - Malignancy Induced Qualifiers: Anemia type: other cause (4) Recurrent left pleural effusion SNOMED Code(s): 15032626 ICD Code: J90 - PLEURAL EFFUSION, NOT ELSEWHERE CLASSIFIED Status: Chronic (5) Generalized muscle weakness SNOMED Code(s): 68097335, 63291054 ICD Code: M62.81 - MUSCLE WEAKNESS (GENERALIZED) Status: Acute (6) End of life care SNOMED Code(s): 066030030, 164304170 ICD Code: Z51.5 - ENCOUNTER FOR PALLIATIVE CARE Status: Acute Problem Details: - Initial encounter - Patient Summary/Data Operative Procedure(s) Performed: None Complications: None Consults: Consultations 04/09/18 18:43 Consult to Case Management [CONS] Routine Consult to Music Sound Light Technician [CONS] Routine Consult to Spiritual Care [CONS] Routine Labs Pending at D/C: None Recommended Follow-up Testing/Procedures: None Planned Operative Procedure(s) after DC: None Hospital Course: Patient was primarily admitted for medical management of symptomatic anemia. He was provided conservative management to include volume resuscitation along with blood transfusion and he immediately improved and his regimen. His last hemoglobin level was noted at 10.6 prior to discharge. He had no overnight issues and he felt pretty good this AM. His hospital course was uncomplicated and the rest of his chronic medical illness remained stable during this admission. Patient was advised to follow-up with his cancer doctor after discharge. He was proved end-of-life care materials for him and his to go over with at home. With his widespread metastatic cancer, his overall prognosis remains very poor. - Patient Instructions Diet: Usual Diet as Tolerated Activity: As Tolerated Driving: Do Not Drive Showering/Bathing: May Shower Notify Provider of: Fever, Increased Pain, Swelling and Redness, Nausea and/or Vomiting Other/Special Instructions: - Please take new medication as directed. - Resume all home medications and continue routine home activities as tolerated. - Hydrate adequately to prevent constipation; may consider fiber or OTC miralax. - Call or follow up with your PCP for any questions or concerns after discharge. - Follow up with your PCP in 1-2 weeks. - Come back or seek immediate care should your symptoms persist or get worse - Discharge Plan *PRESCRIPTION DRUG MONITORING PROGRAM REVIEWED*: No *COPY OF PRESCRIPTION DRUG MONITORING REPORT IN PATIENT GRACE: No Prescriptions/Med Rec: Dronabinol [Marinol] 2.5 mg PO TIDAC #30 cap Home Medications: Home Meds Ondansetron HCl [Zofran] 8 mg PO Q8H PRN 01/20/18 [History] Prochlorperazine Maleate [Compazine] 10 mg PO QID PRN 01/20/18 [History] oxyCODONE ER [OxyCONTIN] 20 mg PO Q8H PRN 01/20/18 [History] oxyCODONE HCl/Acetaminophen [oxyCODONE-Acetaminophen 5-325] 1 - 2 tab PO Q4H PRN 01/20/18 [History] Dronabinol [Marinol] 2.5 mg PO TIDAC #30 cap 04/10/18 [Rx] Patient Handouts: Weakness, [id number], End-of-Life Care, Blood Transfusion, Adult, Care After, [id number] Referrals: Ross Joy MD [Primary Care Provider] - (Follow-up with previously scheduled appointments with Dr. Joy. ) - Discharge Summary/Plan Comment DC Time >30 min.: Yes (45 mins) Discharge Summary/Plan Comment: Discharge to Home - General Info Date of Service: 04/10/18 Admission Dx/Problem (Free Text: Admission Diagnosis/Problem Admission Diagnosis/Problem Leukocytosis Functional Status: Reports: Pain Controlled, Tolerating Diet, Ambulating, Urinating - Review of Systems General: Denies: Fever, Fatigue, Malaise, Chills HEENT: Reports: No Symptoms Pulmonary: Denies: Shortness of Breath Gastrointestinal: Denies: Abdominal Pain, Decreased Appetite, Nausea, Vomiting Genitourinary: Reports: No Symptoms Musculoskeletal: Reports: No Symptoms Skin: Denies: Cyanosis, Jaundice, Mottled, Pallor, Diaphoresis, Bruising, Rash Neurological: Denies: Confusion, Headache, Difficulty Walking, Weakness, Gait Disturbance Psychiatric: Denies: Depression, Anxiety, Agitation, Hallucinations Systems Review Comment: No overnight or acute issues. He slept good really well and feels good this AM. He has no complaints and eager to go home. His Hgb level improved to 10.6 after blood transfusions. - Patient Data Vitals - Most Recent: Last Vital Signs Temp 37.1 C 04/10/18 09:14 Pulse 110 H 04/10/18 08:16 Resp 16 04/10/18 08:16 BP 124/74 04/10/18 08:16 Pulse Ox 92 L 04/10/18 08:16 Weight - Most Recent: 78.426 kg I&O - Last 24 hours: Intake & Output 04/09/18 04/10/18 04/10/18 22:59 06:59 14:59 Intake Total 360 1860 120 Output Total 1550 Balance 360 310 120 Lab Results - Last 24 hrs: Laboratory Results - last 24 hr 04/09/18 04/09/18 04/09/18 Range/Units 14:25 14:25 14:25 WBC 10.12 H (4.23-9.07) K/mm3 RBC 2.65 L (4.63-6.08) M/mm3 Hgb 6.8 L* (13.7-17.5) gm/L Hct 21.5 L (40.1-51.0) % MCV 81.1 (79.0-92.2) fl MCH 25.7 (25.7-32.2) pg MCHC 31.6 L (32.2-35.5) g/dl RDW Std Deviation 52.5 H (35.1-43.9) fL Plt Count 418 H (163-337) K/mm3 MPV 8.6 L (9.4-12.3) fl Neut % (Auto) (34.0-67.9) % Lymph % (Auto) (21.8-53.1) % Stone % (Auto) (5.3-12.2) % Eos % (Auto) (0.8-7.0) Baso % (Auto) (0.1-1.2) % Neut # (Auto) (1.78-5.38) K/mm3 Lymph # (Auto) (1.32-3.57) K/mm3 Stone # (Auto) (0.30-0.82) K/mm3 Eos # (Auto) (0.04-0.54) K/mm3 Baso # (Auto) (0.01-0.08) K/mm3 Neutrophils % (Manual) 82 H (40-60) % Band Neutrophils % 0 (0-10) % Lymphocytes % (Manual) 13 L (20-40) % Atypical Lymphs % 0 % Monocytes % (Manual) 5 (2-10) % Eosinophils % (Manual) 0 L (0.8-7.0) % Basophils % (Manual) 0 L (0.2-1.2) Manual Slide Review Toxic Granulation 2+ moderate Platelet Estimate Adequate Plt Morphology Comment Normal Hypochromasia 2+ moderate Anisocytosis 2+ moderate Microcytosis 2+ moderate RBC Morph Comment Not Reportable Sodium 132 L (136-145) mEq/L Potassium 3.6 (3.5-5.1) mEq/L Chloride 95 L (98-107) mEq/L Carbon Dioxide 28 (21-32) mEq/L Anion Gap 12.6 (5-15) BUN 12 (7-18) mg/dL Creatinine 1.1 (0.7-1.3) mg/dL Est Cr Clr Drug Dosing 82.63 mL/min Estimated GFR (MDRD) > 60 (>60) mL/min BUN/Creatinine Ratio 10.9 L (14-18) Glucose 119 H (74-106) mg/dL Calcium 8.6 (8.5-10.1) mg/dL Magnesium 1.8 (1.8-2.4) mg/dl Total Bilirubin 0.4 (0.2-1.0) mg/dL AST 55 H (15-37) U/L ALT 34 (16-63) U/L Alkaline Phosphatase 86 (46-116) U/L Lactate Dehydrogenase 983 H (85-227) U/L C-Reactive Protein 33.4 H* (<1.0) mg/dL NT-Pro-B Natriuret Pep 435 H (0-125) pg/mL Total Protein 6.7 (6.4-8.2) g/dl Albumin 2.4 L (3.4-5.0) g/dl Globulin 4.3 gm/dL Albumin/Globulin Ratio 0.6 L (1-2) Urine Color (Yellow) Urine Appearance (Clear) Urine pH (5.0-8.0) Ur Specific [place] (1.005-1.030) Urine Protein (Negative) Urine Glucose (UA) (Negative) Urine Ketones (Negative) Urine Occult Blood (Negative) Urine Nitrite (Negative) Urine Bilirubin (Negative) Urine Urobilinogen (0.2-1.0) Ur Leukocyte Esterase (Negative) Urine RBC (0-5) /hpf Urine WBC (0-5) /hpf Ur Epithelial Cells (0-5) /hpf Urine Bacteria (FEW) /hpf Fine Granular Casts (0-5) /lpf Urine Mucus (FEW) /hpf Blood Type Gel Antibody Screen Crossmatch 04/09/18 04/09/18 04/10/18 Range/Units 14:25 19:30 06:15 WBC 8.29 (4.23-9.07) K/mm3 RBC 3.88 L (4.63-6.08) M/mm3 Hgb 10.6 L (13.7-17.5) gm/L Hct 32.1 L (40.1-51.0) % MCV 82.7 (79.0-92.2) fl MCH 27.3 (25.7-32.2) pg MCHC 33.0 (32.2-35.5) g/dl RDW Std Deviation 49.3 H (35.1-43.9) fL Plt Count 404 H (163-337) K/mm3 MPV 9.2 L (9.4-12.3) fl Neut % (Auto) 77.6 H (34.0-67.9) % Lymph % (Auto) 3.6 L (21.8-53.1) % Stone % (Auto) 17.5 H (5.3-12.2) % Eos % (Auto) 0.1 L (0.8-7.0) Baso % (Auto) 0.0 L (0.1-1.2) % Neut # (Auto) 6.43 H (1.78-5.38) K/mm3 Lymph # (Auto) 0.30 L (1.32-3.57) K/mm3 Stone # (Auto) 1.45 H (0.30-0.82) K/mm3 Eos # (Auto) 0.01 L (0.04-0.54) K/mm3 Baso # (Auto) 0.00 L (0.01-0.08) K/mm3 Neutrophils % (Manual) (40-60) % Band Neutrophils % (0-10) % Lymphocytes % (Manual) (20-40) % Atypical Lymphs % % Monocytes % (Manual) (2-10) % Eosinophils % (Manual) (0.8-7.0) % Basophils % (Manual) (0.2-1.2) Manual Slide Review Abnormal smear Toxic Granulation Platelet Estimate Plt Morphology Comment Hypochromasia Anisocytosis Microcytosis RBC Morph Comment Sodium (136-145) mEq/L Potassium (3.5-5.1) mEq/L Chloride (98-107) mEq/L Carbon Dioxide (21-32) mEq/L Anion Gap (5-15) BUN (7-18) mg/dL Creatinine (0.7-1.3) mg/dL Est Cr Clr Drug Dosing mL/min Estimated GFR (MDRD) (>60) mL/min BUN/Creatinine Ratio (14-18) Glucose (74-106) mg/dL Calcium (8.5-10.1) mg/dL Magnesium (1.8-2.4) mg/dl Total Bilirubin (0.2-1.0) mg/dL AST (15-37) U/L ALT (16-63) U/L Alkaline Phosphatase (46-116) U/L Lactate Dehydrogenase (85-227) U/L C-Reactive Protein (<1.0) mg/dL NT-Pro-B Natriuret Pep (0-125) pg/mL Total Protein (6.4-8.2) g/dl Albumin (3.4-5.0) g/dl Globulin gm/dL Albumin/Globulin Ratio (1-2) Urine Color Yellow (Yellow) Urine Appearance Clear (Clear) Urine pH 6.5 (5.0-8.0) Ur Specific [place] 1.015 (1.005-1.030) Urine Protein Negative (Negative) Urine Glucose (UA) Negative (Negative) Urine Ketones Negative (Negative) Urine Occult Blood Negative (Negative) Urine Nitrite Negative (Negative) Urine Bilirubin Negative (Negative) Urine Urobilinogen 0.2 (0.2-1.0) Ur Leukocyte Esterase Negative (Negative) Urine RBC 0-5 (0-5) /hpf Urine WBC 0-5 (0-5) /hpf Ur Epithelial Cells 0-5 (0-5) /hpf Urine Bacteria Rare (FEW) /hpf Fine Granular Casts 0-5 (0-5) /lpf Urine Mucus Not seen (FEW) /hpf Blood Type A POSITIVE Gel Antibody Screen Negative Crossmatch See Detail 04/10/18 Range/Units 06:15 WBC (4.23-9.07) K/mm3 RBC (4.63-6.08) M/mm3 Hgb (13.7-17.5) gm/L Hct (40.1-51.0) % MCV (79.0-92.2) fl MCH (25.7-32.2) pg MCHC (32.2-35.5) g/dl RDW Std Deviation (35.1-43.9) fL Plt Count (163-337) K/mm3 MPV (9.4-12.3) fl Neut % (Auto) (34.0-67.9) % Lymph % (Auto) (21.8-53.1) % Stone % (Auto) (5.3-12.2) % Eos % (Auto) (0.8-7.0) Baso % (Auto) (0.1-1.2) % Neut # (Auto) (1.78-5.38) K/mm3 Lymph # (Auto) (1.32-3.57) K/mm3 Stone # (Auto) (0.30-0.82) K/mm3 Eos # (Auto) (0.04-0.54) K/mm3 Baso # (Auto) (0.01-0.08) K/mm3 Neutrophils % (Manual) (40-60) % Band Neutrophils % (0-10) % Lymphocytes % (Manual) (20-40) % Atypical Lymphs % % Monocytes % (Manual) (2-10) % Eosinophils % (Manual) (0.8-7.0) % Basophils % (Manual) (0.2-1.2) Manual Slide Review Toxic Granulation Platelet Estimate Plt Morphology Comment Hypochromasia Anisocytosis Microcytosis RBC Morph Comment Sodium 136 (136-145) mEq/L Potassium 3.7 (3.5-5.1) mEq/L Chloride 98 (98-107) mEq/L Carbon Dioxide 29 (21-32) mEq/L Anion Gap 12.7 (5-15) BUN 10 (7-18) mg/dL Creatinine 1.0 (0.7-1.3) mg/dL Est Cr Clr Drug Dosing 90.89 mL/min Estimated GFR (MDRD) > 60 (>60) mL/min BUN/Creatinine Ratio 10.0 L (14-18) Glucose 97 (74-106) mg/dL Calcium 9.4 (8.5-10.1) mg/dL Magnesium 1.9 (1.8-2.4) mg/dl Total Bilirubin (0.2-1.0) mg/dL AST (15-37) U/L ALT (16-63) U/L Alkaline Phosphatase (46-116) U/L Lactate Dehydrogenase (85-227) U/L C-Reactive Protein 32.2 H* (<1.0) mg/dL NT-Pro-B Natriuret Pep (0-125) pg/mL Total Protein (6.4-8.2) g/dl Albumin (3.4-5.0) g/dl Globulin gm/dL Albumin/Globulin Ratio (1-2) Urine Color (Yellow) Urine Appearance (Clear) Urine pH (5.0-8.0) Ur Specific [place] (1.005-1.030) Urine Protein (Negative) Urine Glucose (UA) (Negative) Urine Ketones (Negative) Urine Occult Blood (Negative) Urine Nitrite (Negative) Urine Bilirubin (Negative) Urine Urobilinogen (0.2-1.0) Ur Leukocyte Esterase (Negative) Urine RBC (0-5) /hpf Urine WBC (0-5) /hpf Ur Epithelial Cells (0-5) /hpf Urine Bacteria (FEW) /hpf Fine Granular Casts (0-5) /lpf Urine Mucus (FEW) /hpf Blood Type Gel Antibody Screen Crossmatch Med Orders - Current: Current Medications Albuterol/Ipratropium (Duoneb 3.0-0.5 Mg/3 Ml) 3 ml NEB Q4H PRN PRN Reason: Shortness Of Breath/wheezing Bisacodyl (Dulcolax) 5 mg PO DAILY PRN PRN Reason: Constipation Cyanocobalamin (Vitamin B12) 1,000 mcg PO DAILY [facility] Last Admin: 04/10/18 09:02 Dose: 1,000 mcg Docusate Sodium (Colace) 100 mg PO BID PRN PRN Reason: Constipation Dronabinol (Marinol) 2.5 mg PO TIDAC [facility] Last Admin: 04/10/18 09:02 Dose: Not Given Enoxaparin Sodium (Lovenox) 40 mg SUBCUT DAILY [facility] Last Admin: 04/10/18 09:01 Dose: 40 mg Folic Acid (Folic Acid) 1 mg PO BEDTIME DANIEL Hydralazine HCl (Apresoline) 20 mg IVPUSH Q4H PRN PRN Reason: Hypertension Hydromorphone HCl (Dilaudid) 1 mg IVPUSH Q4H PRN PRN Reason: Pain (severe 7-10) Sodium Chloride (Normal Saline) 1,000 mls @ 125 mls/hr IV ASDIRECTED [facility] Last Admin: 04/09/18 21:38 Dose: 125 mls/hr Promethazine HCl 12.5 mg/ (Sodium Chloride) 50.5 mls @ 100 mls/hr IV Q6H PRN PRN Reason: Nausea/Vomiting Lorazepam (Ativan) 2 mg IVPUSH Q4H PRN PRN Reason: Seizures Lorazepam (Ativan) 1 mg IV Q6H PRN PRN Reason: Anxiety Magnesium Hydroxide (Milk Of Magnesia) 30 ml PO Q12H PRN PRN Reason: Constipation Magnesium Sulfate (Pharmacy To Dose - Magnesium Replacement) 0 dose .XX ASDIRECTED PRN PRN Reason: RX TO WATCH MAG LEVELS Metoprolol Tartrate (Lopressor) 5 mg IVPUSH Q4H PRN PRN Reason: Tachycardia Multivitamins (Thera) 1 each PO BEDTIME [facility] Ondansetron HCl (Zofran) 4 mg IV Q6H PRN PRN Reason: Nausea/Vomiting Last Admin: 04/10/18 07:00 Dose: 4 mg Ondansetron HCl (Zofran Odt) 8 mg PO Q8H PRN PRN Reason: Nausea/Vomiting Oxycodone HCl (Oxycontin) 10 mg PO Q8H PRN PRN Reason: Pain (severe 7-10) Last Admin: 04/10/18 07:00 Dose: 10 mg Oxycodone/Acetaminophen (Percocet 325-5 Mg) 1 - 2 tab PO Q4H PRN PRN Reason: Pain (moderate 4-6) Last Admin: 04/09/18 21:03 Dose: 2 tab Polyethylene Glycol (Miralax) 17 gm PO DAILY PRN PRN Reason: Constipation Potassium Chloride (Pharmacy To Dose - Potassium Replacement) 0 dose .XX ASDIRECTED PRN PRN Reason: RX TO WATCH K LEVELS Prochlorperazine Maleate (Compazine) 10 mg PO QID PRN PRN Reason: Nausea/Vomiting Senna/Docusate Sodium (Senna Plus) 1 tab PO BID PRN PRN Reason: Constipation Temazepam (Restoril) 7.5 mg PO BEDTIME PRN PRN Reason: Sleep Thiamine HCl (Vitamin B-1) 100 mg PO BEDTIME DANIEL Discontinued Medications Cyanocobalamin (Vitamin B12) 1,000 mcg PO NOW ONE Stop: 04/09/18 21:31 Last Admin: 04/09/18 22:27 Dose: 1,000 mcg Folic Acid (Folic Acid) 1 mg PO ONETIME ONE Stop: 04/09/18 21:28 Last Admin: 04/09/18 22:27 Dose: 1 mg Heparin Sodium (Porcine) (Heparin Lock Flush 100 Units/Ml) 500 units FLUSH ASDIRECTED ONE Stop: 04/10/18 10:01 Hydromorphone HCl (Dilaudid) 0.5 mg IVPUSH ONETIME ONE Stop: 04/09/18 14:26 Last Admin: 04/09/18 14:36 Dose: 0.5 mg Hydromorphone HCl (Dilaudid) 1 mg IVPUSH ONETIME ONE Stop: 04/09/18 16:32 Last Admin: 04/09/18 16:49 Dose: 1 mg Dextrose/Lactated Ringer's (Dextrose 5%-Lactated Ringers) 1,000 mls @ 500 mls/ hr IV ASDIRECTED [facility] Last Admin: 04/09/18 14:34 Dose: 500 mls/hr Magnesium Oxide (Magnesium Oxide) 400 mg PO ONETIME ONE Stop: 04/09/18 19:46 Last Admin: 04/09/18 21:03 Dose: 400 mg Metoclopramide HCl (Reglan) 10 mg IVPUSH ONETIME ONE Stop: 04/09/18 14:26 Last Admin: 04/09/18 14:34 Dose: 10 mg Multivitamins (Thera) 1 each PO NOW ONE Stop: 04/09/18 21:31 Last Admin: 04/09/18 22:27 Dose: 1 each Non-Formulary Medication (Cefdinir) 300 mg PO BID [facility] Potassium Chloride (Klor-Con M20) 40 meq PO Q4H [facility] Stop: 04/09/18 23:46 Last Admin: 04/10/18 01:15 Dose: 40 meq Thiamine HCl (Vitamin B-1) 100 mg PO ONETIME ONE Stop: 04/09/18 21:30 Last Admin: 04/09/18 22:27 Dose: 100 mg - Exam General: Reports: Alert, Oriented, Cooperative, No Acute Distress, Other (he looks much better-pink in color) HEENT: Reports: Pupils Equal, Pupils Reactive, EOMI, Mucous Membr. Moist/[place] Neck: Reports: Supple, Trachea Midline, No JVD, Lymphadenopathy Lungs: Reports: Normal Respiratory Effort, Decreased Breath Sounds, Other (port a cath on right upper thorax) Cardiovascular: Reports: Regular Rate, Regular Rhythm GI/Abdominal Exam: Normal Bowel Sounds, Soft, Non-Tender, No Organomegaly, No Distention, No Abnormal Bruit, No Mass (Male) Exam: Deferred Rectal (Males) Exam: Deferred Back Exam: Reports: Normal Inspection, Decreased Range of Motion Extremities: Normal Inspection, Normal Range of Motion, Non-Tender, No Pedal Edema, Normal Capillary Refill Skin: Reports: Warm, Dry, Intact Neurological: Reports: No New Focal Deficit Psy/Mental Status: Reports: Alert, Normal Affect, Normal Mood
[2018-04-10] MEDS ORDERED: Thiamine 100 MG Tab PO SCH (21:00)
[2018-04-10] MEDS ORDERED: Folic Acid 1 MG Tab PO SCH (21:00)
[2018-04-10] MEDS ORDERED: Multivitamins,Therapeutic Tab PO SCH (21:00)
== END 2018-04-10 11:10 | disposition home or self-care (01) | DRG 694 ==
LOC: JD.ED 12:30 → JD.MS 18:31
PROVIDERS: ADMIT Internal Medicine; ATTEND Internal Medicine
PROC: 30233N1 Transfusion of Nonautologous Red Blood Cells into Peripheral Vein, Percutaneous Approach (ICD-10-PCS; principal; 2018-04-09)
DX: C37 Malignant neoplasm of thymus (principal); C79.51 Secondary malignant neoplasm of bone; C78.7 Secondary malignant neoplasm of liver and intrahepatic bile duct; C78.02 Secondary malignant neoplasm of left lung; C78.01 Secondary malignant neoplasm of right lung; C78.89 Secondary malignant neoplasm of other digestive organs; I50.22 Chronic systolic (congestive) heart failure; E87.1 Hypo-osmolality and hyponatremia; K76.0 Fatty (change of) liver, not elsewhere classified; M62.81 Muscle weakness (generalized); D63.0 Anemia in neoplastic disease; R62.7 Adult failure to thrive; E78.5 Hyperlipidemia, unspecified; K21.9 Gastro-esophageal reflux disease without esophagitis; K59.00 Constipation, unspecified; G89.3 Neoplasm related pain (acute) (chronic); I25.2 Old myocardial infarction; Z51.5 Encounter for palliative care; Z88.1 Allergy status to other antibiotic agents; Z79.899 Other long term (current) drug therapy
CPT/HCPCS: 36415; 36430; 71045; 71045-26; 74018; 74018-26; 80048; 80053; 81001; 83615; 83735; 83880; 85007; 85025; 85027; 86140; 86850; 86900; 86901; 86922; 87040; 93005; A9270-GY; J1170; J1642; J1650; J2405; J2765; J7040; J7042; P9016